=== PATIENT | male | born 1985 | race Caucasian/White ===

== ENCOUNTER 2020-01-04 06:15 | Outpatient (CLI) | payer OTHER, SELFPAY ==
[2020-01-04 18:35] LABS: SARS-CoV-2 RNA PCR Negative
== END 2020-01-04 06:16 | disposition home or self-care (01) ==
LOC: ANHCOVIDDT 06:16
PROVIDERS: PCP Internal Medicine; Visit Provider Internal Medicine Gastroenterology
DX: Z01.818 Encounter for other preprocedural examination (principal); Z11.59 Encounter for screening for other viral diseases
CPT/HCPCS: 87635; C9803; U0003

== ENCOUNTER 2020-02-16 08:20 | Emergency (ER) | payer OTHER, SELFPAY ==
--- NOTE | 2020-02-16 08:31 | ED.NAVMDI ---
HPI - Nausea/Vomiting/Diarrhea General Chief complaint: Nausea/Vomiting/Diarrhea Stated complaint: nausea Time Seen by Provider: 02/16/20 08:31 History of Present Illness HPI Narrative: Long history of GERD. Frequent epigastric burning pain especially in the morning. On omeprazole 20 mg. Had EGD scheduled, but was not able to get it due to insurance issue. Worsening of symptoms for the past 3 days. No has daily morning n[place]a and frothy vomiting. Related Data Allergies Allergy/AdvReac Type Severity Reaction Status Date / Time No Known Allergies Allergy Unverified 01/03/20 15:02 Review of Systems Review of Systems: All systems reviewed & are unremarkable except as noted in HPI and below Constitutional: Constitutional: Denies fever(s) ENT: Denies sore throat Cardiovascular: Cardiovascular: Denies chest pain Respiratory: Respiratory: Denies dyspnea Gastrointestinal: Gastrointestinal: Reports abdominal pain, Denies constipation, Reports heartburn, Denies diarrhea, Reports nausea and Reports vomiting Neurologic: Denies numbness and Denies weakness PMFSH Past Medical History Medical History Epigastric pain Hypertension Family History Family History Mother Family history of thyroid disease Father Family history of elevated blood lipids Other Primary stomach malignancy Social History Social History Smoking status: Former smoker Smoking end date: 08/25/12 Gender identity (if verbalized by the patient): Male Exam Const: General: healthy appearing, no acute distress and alert Orientation/consciousness: patient oriented x3 HENMT: Head: normal to inspection Neck: Neck: normal visual inspection and no lymphadenopathy Chest: Chest palpation & inspection: no tenderness Resp: Effort & Inspection: normal respiratory effort Auscultation: clear to auscultation bilaterally, no rales, no rhonchi and no wheezes Cardio: Jugular venous distension: no JVD Rate: regular rate Rhythm: regular rhythm Heart sounds: no murmurs GI: Inspection: non-distended GI Palp: Yes Soft to palpation and Yes Tenderness to palpation present (GI) (epigastrium ) Skin: General skin exam: normal color Neuro: General: patient oriented x3 and moves all extremities Speech: normal speech Extrem: General: no edema Psych: Appearance: well kempt Affect: normal affect Course Vital Signs Vital signs: Vital Signs Pulse Rate 59 L 02/16/20 09:06 Blood Pressure 129/72 02/16/20 09:06 Pulse Rate 85 02/16/20 09:07 Blood Pressure 129/87 02/16/20 09:07 MDM - Nausea/Vomiting/Diarrhea MDM Narrative Medical decision making narrative: Feeling better aafter GI cocktail. Case discussed with with Dr. Pang. He will try to expedite his EGD Medical Records Attestation: I reviewed the patient's medical records. Lab Data Attestation: I reviewed the patient's lab results. Result diagrams: 02/16/20 09:10 02/16/20 09:10 Labs: Lab Results 02/16/20 02/16/20 Range/Units 09:10 09:10 WBC 9.8 (4.5-10.0) K/mm3 RBC 5.21 (4.6-6.20) M/mm3 Hgb 15.5 (14.0-18.0) g/dL Hct 45.1 (42.0-52.0) % MCV 86.6 (80-100) fl MCH 29.8 (26-34) pg MCHC 34.4 (32-36) g/dl RDW 11.9 (11.5-14.5) % Plt Count 382 H (150-375) k/mm3 MPV 9.7 (7.4-10.4) fl Immature Gran % (Auto) 0.7 H (0-0.5) % Neut % (Auto) 80.5 H (45.5-73.1) % Lymph % (Auto) 11.5 L (18.3-44.2) % [place] % (Auto) 4.1 (2.6-8.5) % Eos % (Auto) 2.8 (0-4.4) % Baso % (Auto) 0.4 (0.2-1.2) % Lymph # (Auto) 1.13 (0.9-3.2) K/mm3 [place] # (Auto) 0.4 (0.1-0.6) K/mm3 Eos # (Auto) 0.3 (0-0.3) K/mm3 Baso # (Auto) 0.0 (0.0-0.1) K/mm3 Abs Immat Gran (auto) 0.07 H (0.00-0.031) K/mm3 Absolute Neuts (auto) 7.9 H (1.3-6.7) K
[2020-02-16] MEDS: ONDANSETRON INJ 4 MG/2 ML VIAL IV PUSH (08:59)
[2020-02-16] MEDS: SODIUM CHLORIDE 0.9% IV 1,000 ML 999 ML IV CONT (08:59)
[2020-02-16] MEDS: PANTOPRAZOLE SODIUM IV 40 MG VIAL IV PUSH (08:59)
[2020-02-16 09:06] VITALS: BP 129/72; BP 132/78; PULSE 59; PULSE 67
[2020-02-16 09:07] VITALS: BP 129/87; PULSE 85
[2020-02-16 09:27] LABS: Basophils Percent Auto 0.4 % (0.2-1.2); Eosinophils Absolute Auto 0.3 K/mm3 (0-0.3); Eosinophils Percent Auto 2.8 % (0-4.4); Hematocrit 45.1 % (42.0-52.0); Hemoglobin 15.5 g/dL (14.0-18.0); Immature Granulocyte Absolute 0.07 K/mm3 (0.00-0.031); Immature Granulocyte Percent A 0.7 % (0-0.5); Lymphocytes Absolute Auto 1.13 K/mm3 (0.9-3.2); Lymphocytes Percent Auto 11.5 % (18.3-44.2); Mean Corpuscular HGB Conc 34.4 g/dl (32-36); Mean Corpuscular Hemoglobin 29.8 pg (26-34); Mean Corpuscular Volume 86.6 fl (80-100); Mean Platelet Volume 9.7 fl (7.4-10.4); Monocytes Absolute Auto 0.4 K/mm3 (0.1-0.6); Monocytes Percent Auto 4.1 % (2.6-8.5); Neutrophils Absolute Auto 7.9 K/mm3 (1.3-6.7); Neutrophils Percent Auto 80.5 % (45.5-73.1); Platelet Count Result 382 k/mm3 (150-375); Red Blood Count 5.21 M/mm3 (4.6-6.20); Red Cell Distribution Width 11.9 % (11.5-14.5); White Blood Count 9.8 K/mm3 (4.5-10.0)
[2020-02-16 09:40] LABS: Potassium 4.2 mmol/L (3.4-5.0)
[2020-02-16 09:53] LABS: Alanine Aminotransferase 25 U/L (4-50); Alkaline Phosphatase 85 U/L (38-126); Aspartate Amino Transferase 28 U/L (17-59); Bilirubin,Total 0.7 mg/dL (0.2-1.3); Blood Urea Nitrogen 17 mg/dL (9-20); Calcium 9.7 mg/dL (8.4-10.2); Carbon Dioxide 27 mmol/L (22-30); Chloride 104 mmol/L (98-107); Estimated Glomerular Filt Rate > 60; Glucose 118 mg/dL (75-110); Lipase 79 U/L (23-300); Sodium 139 mmol/L (137-145)
== END 2020-02-16 10:47 | disposition home or self-care (01) ==
PROVIDERS: Emergency Provider Emergency Medicine; PCP Internal Medicine
DX: K21.9 Gastro-esophageal reflux disease without esophagitis (principal); I10 Essential (primary) hypertension; Z87.891 Personal history of nicotine dependence
CPT/HCPCS: 36415; 80053; 83690; 85025; 96361; 96374; 96375; 99284; A9270; C9113; J2405; J7030

== ENCOUNTER 2020-02-18 09:42 | Day surgery (SDC) | payer OTHER, SELFPAY ==
[2020-01-03 15:09] VITALS: BMI 38.4
--- NOTE | 2020-02-18 10:51 | WPDANESEPPF ---
Anes - Initial Pre Proc Eval Procedure: Operation Date: 02/18/20 13:30 Proposed Procedures p Esophagogastroduodenoscopy - Kamron Garza MD Date/Time: 02/18/20 10:51 Surgeon: Kamron Garza MD Pre Op Diagnosis: Nausea/ Vomiting/ Dysphagia/GERD Patient Data Age: 34 Gender: M Height: 1.8 m Weight: 125 kg Allergies Allergy/AdvReac Type Severity Reaction Status Date / Time No Known Allergies Allergy Verified 02/18/20 09:06 Home Medications Medication Instructions Recorded Confirmed Type escitalopram oxalate 10 mg tablet 10 mg PO DAILY #90 tablet 10/04/19 02/18/20 Rx levothyroxine 50 mcg tablet 50 mcg PO DAILY #90 tablet 10/04/19 02/18/20 Rx simvastatin 40 mg tablet 40 mg PO DAILY #90 tablet 10/04/19 01/03/20 Rx metoprolol succinate 25 mg capsule 25 mg PO DAILY #90 each 12/07/19 02/18/20 Rx sprinkle, ext. release 24 hr omeprazole 20 mg tablet,delayed 20 mg PO BID #60 tablet 02/18/20 02/18/20 Rx release sucralfate 100 mg/mL oral 1 gm PO Q6H #420 ml 02/18/20 02/18/20 Rx suspension Patient hx anesthesia problems: none Family hx anesthesia problems: none PMFSH Social History Social History Smoking status: Former smoker Smoking end date: 08/25/12 Gender identity (if verbalized by the patient): Male Anes - Eval Final PreProcedure Day of Procedure 02/18/20 10:51 Patient weight: obese Heart: regular rate and rhythm Lungs: clear to auscultation and normal air movement Airway: Mallampati scale class II Neurological: alert and oriented Last oral intake: >/= 8 hours ASA classification: III Emergent: no Anesthetic plan: proceed Anesthesia type and monitoring: general GIVS and standard monitoring Informed Consent: The patient's anesthetic plan and its attendant risks and benefits were discussed with the patient/family/POA. Questions were solicited and answers provided to the satisfaction of the patient/family/POA.
[2020-02-18 11:51] VITALS: BP 130/82; PULSE 80; RESP 18; TEMP 36.9; O2SAT 97
[2020-02-18] MEDS: LACTATED RINGERS 1,000 ML 150 ML IV CONT (12:05)
[2020-02-18 13:41] VITALS: BP 102/64; PULSE 70; RESP 25; O2SAT 94
--- NOTE | 2020-02-18 13:42 | PM.HPGS ---
History of Present Illness History of Present Illness Consent: Risks, benefits, and alternatives have been discussed and questions answered. Patient agrees to proceed with procedure. Chief complaint: Nausea/ Vomiting/ Dysphagia/GERD Narrative: David Woods is a 34 year old male with reflux, nausea and vomiting despite treatment, he came to ER few days ago and still feeling sick, never had EGD Review of Systems Constitutional: Constitutional: Denies headache(s) and Denies weakness Eyes: Eyes: Denies blurry vision ENT: Reports Normal hearing present, Denies headache(s) and Denies neck pain Cardiovascular: Cardiovascular: Denies chest pain and Denies dyspnea Respiratory: Respiratory: Denies dyspnea Gastrointestinal: Gastrointestinal: Reports no additional gastrointestinal complaints Genitourinary: Genitourinary: Denies dysuria Musculoskeletal: Musculoskeletal: Denies neck pain Integumentary/Breasts: Skin/Breast: Denies dry skin Neurologic: Reports Normal hearing present, Denies headache(s) and Denies weakness Psychiatric: Psychiatric: Denies anxiety Endocrine: Endocrine: Denies change in body appearance Hematologic/Lymphatic: Hematologic/Lymphatic: Denies easy bleeding Allergic/Immunologic: Allergic/Immunologic: Denies urticaria [facility] Social History Social History Smoking status: Former smoker Smoking end date: 08/25/12 Gender identity (if verbalized by the patient): Male Meds Home Medications and Allergies Home Medications Medication Instructions Recorded Confirmed Type escitalopram oxalate 10 mg tablet 10 mg PO DAILY #90 tablet 10/04/19 02/18/20 Rx levothyroxine 50 mcg tablet 50 mcg PO DAILY #90 tablet 10/04/19 02/18/20 Rx simvastatin 40 mg tablet 40 mg PO DAILY #90 tablet 10/04/19 01/03/20 Rx metoprolol succinate 25 mg capsule 25 mg PO DAILY #90 each 12/07/19 02/18/20 Rx sprinkle, ext. release 24 hr omeprazole 20 mg tablet,delayed 20 mg PO BID #60 tablet 02/18/20 02/18/20 Rx release sucralfate 100 mg/mL oral 1 gm PO Q6H #420 ml 02/18/20 02/18/20 Rx suspension Allergies Allergy/AdvReac Type Severity Reaction Status Date / Time No Known Allergies Allergy Verified 02/18/20 09:06 Vital Signs Vital Signs - 24 hr 02/18/20 11:51 Temperature 98.4 F Pulse Rate 80 Respiratory Rate 18 Blood Pressure 130/82 Pulse Oximetry 97 Exam Const: General: comfortable and no acute distress HENMT: General nose exam: Normal nares present Eyes: General: appearance normal, both eyes and all related structures Neck: Neck: no JVD Resp: Auscultation: clear to auscultation bilaterally Cardio: Rate: regular rate Rhythm: regular rhythm GI: Inspection: non-distended GI Palp: Yes Soft to palpation Skin: General skin exam: normal color Neuro: General: gait normal Speech: normal speech Extrem: General: normal to inspection Psych: Mental Status: mental status grossly normal Assessment and Plan Assessment and plan (1) GERD (gastroesophageal reflux disease): Qualifiers: Esophagitis presence: esophagitis presence not specified Qualified Code(s): K21.9 - Gastro-esophageal reflux disease without esophagitis Code(s): K21.9 - Gastro-esophageal reflux disease without esophagitis Status: Acute Assessment and Plan: will proceed with egd (2) Epigastric pain: Code(s): R10.13 - Epigastric pain Status: Acute (3) Nausea & vomiting: Code(s): R11.2 - Nausea with vomiting, unspecified Status: Acute
[2020-02-18 13:51] VITALS: BP 105/64; PULSE 68; RESP 19; O2SAT 96
[2020-02-18 14:01] VITALS: BP 113/75; PULSE 62; RESP 19; O2SAT 97
== END 2020-02-18 14:10 | disposition home or self-care (01) ==
PROVIDERS: PCP Internal Medicine; Visit Provider Internal Medicine Gastroenterology
PROC: 0DJ08ZZ Inspection of Upper Intestinal Tract, Via Natural or Artificial Opening Endoscopic (ICD-10-PCS; CPT 43235; principal; 2020-02-18 13:30)
DX: K29.50 Unspecified chronic gastritis without bleeding (principal); K21.0 Gastro-esophageal reflux disease with esophagitis; R13.10 Dysphagia, unspecified; Z87.891 Personal history of nicotine dependence; E66.9 Obesity, unspecified; Z68.36 Body mass index [BMI] 36.0-36.9, adult
CPT/HCPCS: 43239; 88305; J2704; J7120

== ENCOUNTER 2020-02-23 09:18 | Emergency (ER) | payer OTHER, SELFPAY ==
[2020-02-23 09:21] VITALS: BP 129/86; PULSE 83; RESP 18; TEMP 36.4; O2SAT 100
[2020-02-23 09:49] LABS: Basophils Absolute Auto 0.1 K/mm3 (0.0-0.1); Basophils Percent Auto 0.5 % (0.2-1.2); Eosinophils Absolute Auto 0.2 K/mm3 (0-0.3); Eosinophils Percent Auto 1.9 % (0-4.4); Hematocrit 46.1 % (42.0-52.0); Hemoglobin 16.4 g/dL (14.0-18.0); Immature Granulocyte Absolute 0.05 K/mm3 (0.00-0.031); Immature Granulocyte Percent A 0.5 % (0-0.5); Lymphocytes Percent Auto 12.9 % (18.3-44.2); Mean Corpuscular HGB Conc 35.6 g/dl (32-36); Mean Corpuscular Hemoglobin 30.4 pg (26-34); Mean Corpuscular Volume 85.4 fl (80-100); Mean Platelet Volume 9.6 fl (7.4-10.4); Monocytes Absolute Auto 0.6 K/mm3 (0.1-0.6); Monocytes Percent Auto 5.5 % (2.6-8.5); Neutrophils Absolute Auto 8.6 K/mm3 (1.3-6.7); Neutrophils Percent Auto 78.7 % (45.5-73.1); Platelet Count Result 409 k/mm3 (150-375); Red Cell Distribution Width 12.4 % (11.5-14.5); White Blood Count 10.9 K/mm3 (4.5-10.0)
[2020-02-23] MEDS: SODIUM CHLORIDE 0.9% IV 1,000 ML 999 ML IV CONT (09:55)
[2020-02-23] MEDS: PROMETHAZINE HCL 25 MG/ML AMPUL 12.5 MG IV PUSH (09:57)
[2020-02-23 10:03] LABS: Alanine Aminotransferase 23 U/L (4-50); Albumin Level 5.2 g/dL (3.5-5.1); Alkaline Phosphatase 95 U/L (38-126); Aspartate Amino Transferase 28 U/L (17-59); Bilirubin,Total 0.7 mg/dL (0.2-1.3); Blood Urea Nitrogen 11 mg/dL (9-20); Calcium 10.2 mg/dL (8.4-10.2); Carbon Dioxide 22 mmol/L (22-30); Chloride 104 mmol/L (98-107); Estimated CRCL calculation 110 ml/min; Estimated Glomerular Filt Rate > 60; Glucose 114 mg/dL (75-110); Lipase 91 U/L (23-300); Potassium 3.7 mmol/L (3.4-5.0); Sodium 139 mmol/L (137-145)
--- NOTE | 2020-02-23 11:25 | ED.ABDPAIN ---
HPI - Abdominal Pain General Chief Complaint: Abdominal Pain Stated Complaint: ABD PAIN Time Seen by Provider: 02/23/20 09:42 History of Present Illness HPI narrative: Patient is a 34-year-old male who presents ER with epigastric pain and nausea and vomiting. Sudden onset this morning. He had just had a endoscopy on 17 February that showed gastritis. He has been hospitalized for persistent nausea and vomiting in the past. Patient still getting anxious and is having tingling of his mouth and hands. Reports his hand is starting to spasm. No chest pain or shortness of breath. No change in his diet that may have exacerbated this. Reports compliant with his home anti-acid medication. Related Data Home Medications Medication Instructions Recorded Confirmed prochlorperazine maleate 02/23/20 Allergies Allergy/AdvReac Type Severity Reaction Status Date / Time No Known Allergies Allergy Verified 02/23/20 09:38 Review of Systems Review of Systems: All systems reviewed & are unremarkable except as noted in HPI and below Constitutional: Constitutional: Denies chills and Denies fever(s) ENT: Denies nasal congestion and Denies sore throat Cardiovascular: Cardiovascular: Denies chest pain and Denies radiating jaw, neck or arm pain Respiratory: Respiratory: Denies cough, Denies dyspnea and Denies wheezing Gastrointestinal: Gastrointestinal: Reports abdominal pain, Reports heartburn, Reports nausea and Reports vomiting Neurologic: Denies focal weakness and Reports numbness Psychiatric: Psychiatric: Reports anxiety and Denies depression PMFSH Past Medical History Medical History (Updated 02/23/20 @ 12:43 by Dave Enamorado MD) Anxiety state, unspecified Dyslipidemia, goal LDL below 130 Epigastric pain GERD (gastroesophageal reflux disease) Hypertension Hypothyroidism (acquired) Nausea & vomiting Surgical History Surgical History (Updated 02/23/20 @ 11:38 by Dave Enamorado MD) History of endoscopy Social History Social History Smoking status: Former smoker Smoking end date: 08/25/12 Gender identity (if verbalized by the patient): Male Exam Narrative: Exam Narrative: GENERAL: Uncomfortable appearing, diaphoretic, well-nourished, and in moderate distress. HEAD: Normocephalic, atraumatic. ENT: Mucous membranes moist. CHEST: Clear to auscultation. No respiratory distress. HEART: Regular rate and rhythm. No murmur heard. Normal peripheral pulses. ABDOMEN: Soft, nontender, nondistended, normal active bowel sounds. EXTREMITIES: Normal range of motion. No edema. SKIN: Warm, dry, no rash. NEURO: No focal deficits. Alert and oriented x3. PSYCH: Normal mood and affect. Course Course Emergency Course: Symptoms resolved with GI cocktail and Ativan. Discharge home. Vital Signs Vital signs: Vital Signs Temperature 97.5 F L 02/23/20 09:21 Pulse Rate 83 02/23/20 09:21 Respiratory Rate 18 02/23/20 09:21 Blood Pressure 129/86 02/23/20 09:21 Pulse Oximetry 100 02/23/20 09:21 Temperature 97.5 F L 02/23/20 09:21 Pulse Rate 78 02/23/20 11:46 Respiratory Rate 18 02/23/20 11:46 Blood Pressure 125/75 02/23/20 11:46 Pulse Oximetry 99 02/23/20 11:46 MDM - Abdominal Pain Lab Data Result diagrams: 02/23/20 09:42 02/23/20 09:42 Labs: Lab Results 02/23/20 02/23/20 Range/Units 09:42 09:42 WBC 10.9 H (4.5-10.0) K/mm3 RBC 5.40 (4.6-6.20) M/mm3 Hgb 16.4 (14.0-18.0) g/dL Hct 46.1 (42.0-52.0) % MCV 85.4 (80-100) fl MCH 30.4 (26-34) pg MCHC 35.6 (32-36) g/dl RDW 12.4 (11.5-14.5) % Plt Count 409 H (150-375) k/mm3 MPV 9.6 (7.4-10.4) fl Immature Gran % (Auto) 0.5 (0-0.5) % Neut % (Auto) 78.7 H (45.5-73.1) % Lymph % (Auto) 12.9 L (18.3-44.2) % [place] % (Auto) 5.5 (2.6-8.5) % Eos % (Auto) 1.9 (0-4.4) % Baso % (Auto) 0.5 (0.
[2020-02-23 11:46] VITALS: BP 125/75; PULSE 78; RESP 18; O2SAT 99
[2020-02-23 13:15] VITALS: BP 120/70; PULSE 66; RESP 16; O2SAT 100
== END 2020-02-23 13:15 | disposition home or self-care (01) ==
PROVIDERS: Emergency Provider Emergency Medicine; PCP Internal Medicine
DX: K29.70 Gastritis, unspecified, without bleeding (principal); K21.9 Gastro-esophageal reflux disease without esophagitis; E78.5 Hyperlipidemia, unspecified; I10 Essential (primary) hypertension; E03.9 Hypothyroidism, unspecified; Z87.891 Personal history of nicotine dependence
CPT/HCPCS: 36415; 80053; 83690; 85025; 96361; 96374; 96375; 99284; J2060; J2550; J7030

== ENCOUNTER 2020-03-29 11:48 | Emergency (ER) | payer OTHER, SELFPAY ==
[2020-03-29 11:55] VITALS: BP 143/93; PULSE 84; RESP 18; TEMP 36.4; O2SAT 97
--- NOTE | 2020-03-29 12:24 | ED.GENADULT ---
HPI - General Adult General Chief complaint: Unspecified <Abrahan Bear PA-C - Last Filed: 03/29/20 13:43> Stated complaint: heart burn <Abrahan Bear PA-C - Last Filed: 03/29/20 13:43> Time Seen by Provider: 03/29/20 12:01 <Abrahan Bear PA-C - Last Filed: 03/29/20 13:43> Source: patient <DOC Dickinson Last Filed: 03/29/20 13:43> Mode of arrival: ambulatory <Abrahan Bear PA-C - Last Filed: 03/29/20 13:43> Limitations: no limitations <Abrahan Bear PA-C - Last Filed: 03/29/20 13:43> History of Present Illness HPI narrative: Patient is a 34-year-old male who presents to emergency department for evaluation of abdominal pain with reflux symptoms that have been present for the last 2 months 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 Patient does note history of anxiety which has been bad as well and attributes his symptoms primarily distress <Abrahan eBar PA-C - Last Filed: 03/29/20 13:43> Related Data Home medications: Home Medications Medication Instructions Recorded Confirmed prochlorperazine maleate 10 mg PO 02/23/20 <Abrahan Bear PA-C - Last Filed: 03/29/20 13:43> Allergies/adverse reactions: Allergies Allergy/AdvReac Type Severity Reaction Status Date / Time No Known Allergies Allergy Verified 03/29/20 11:59 <Abrahan Bear PA-C - Last Filed: 03/29/20 13:43> Review of Systems Review of Systems: All systems reviewed & are unremarkable except as noted in HPI and below <Abrahan Bear PA-C - Last Filed: 03/29/20 13:43> PMFSH Past Medical History Medical History: Medical History Anxiety state, unspecified Diarrhea Dyslipidemia, goal LDL below 130 Epigastric pain GERD (gastroesophageal reflux disease) Hypertension Hypothyroidism (acquired) Nausea Nausea & vomiting <Abrahan Bear PA-C - Last Filed: 03/29/20 13:43> Surgical History Surgical History: Surgical History History of endoscopy <Abrahan Bear PA-C - Last Filed: 03/29/20 13:43> Social History Social History: Social History Smoking status: Former smoker Smoking end date: 08/25/12 Gender identity (if verbalized by the patient): Male <Abrahan Bear PA-C - Last Filed: 03/29/20 13:43> Exam Narrative: Exam Narrative: GENERAL: Well-appearing, well-nourished, and in no acute distress. HEAD: Normocephalic, atraumatic. EYES: PERRLA and EOMI. ENT: Nares clear, no rhinorrhea or epistaxis. Mucous membranes moist. CHEST: Clear to auscultation. No respiratory distress. No wheezes rales or rhonchi HEART: Regular rate and rhythm. No murmur heard. Normal peripheral pulses. ABDOMEN: Soft, epigastric tenderness without rebound or guarding, nondistended EXTREMITIES: Normal range of motion. No edema. SKIN: Warm, dry, no rash. NEURO: No focal deficits. Alert and oriented x3. PSYCH: Normal mood and affect. <Abrahan Bear PA-C - Last Filed: 03/29/20 13:43> Course Course Emergency Course: Patient improved with medications feeling much better felt appropriate discharge home agreeing to follow-up with his specialist patient is afebrile nontoxic-appearing. <Abrahan Bear PA-C - Last Filed: 03/29/20 13:43> Vital Signs Vital signs: Vital Signs Temperature 97.5 F L 03/29/20 11:55 Pulse Rate 84 03/29/20 11:55 Respiratory Rate 18 03/29/20 11:55 Blood Pressure 143/93 H 03/29/20 11:55 Pulse Oximetry 97 0
[2020-03-29 12:26] LABS: Basophils Percent Auto 0.4 % (0.2-1.2); Eosinophils Absolute Auto 0.2 K/mm3 (0-0.3); Eosinophils Percent Auto 2.3 % (0-4.4); Hematocrit 42.3 % (42.0-52.0); Hemoglobin 14.8 g/dL (14.0-18.0); Immature Granulocyte Absolute 0.04 K/mm3 (0.00-0.031); Immature Granulocyte Percent A 0.5 % (0-0.5); Lymphocytes Absolute Auto 0.95 K/mm3 (0.9-3.2); Lymphocytes Percent Auto 11.6 % (18.3-44.2); Mean Corpuscular Hemoglobin 29.9 pg (26-34); Mean Corpuscular Volume 85.5 fl (80-100); Mean Platelet Volume 9.8 fl (7.4-10.4); Monocytes Absolute Auto 0.3 K/mm3 (0.1-0.6); Monocytes Percent Auto 3.2 % (2.6-8.5); Neutrophils Absolute Auto 6.7 K/mm3 (1.3-6.7); Platelet Count Result 405 k/mm3 (150-375); Red Blood Count 4.95 M/mm3 (4.6-6.20); Red Cell Distribution Width 12.8 % (11.5-14.5); White Blood Count 8.2 K/mm3 (4.5-10.0)
[2020-03-29] MEDS: LIDOCAINE HCL 2% VISC SOLN 15 ML UDC 20 ML PO (12:34)
[2020-03-29] MEDS: FAMOTIDINE 20 MG/2 ML VIAL IV PUSH (12:34)
[2020-03-29] MEDS: MAG HYDROX/AL HYDROX/SIMETH 30 ML UDC PO (12:34)
[2020-03-29] MEDS: diphenhydrAMINE HCl INJ 50 MG/ML VIAL 25 MG IV PUSH (12:34)
[2020-03-29] MEDS: METOCLOPRAMIDE HCL INJ 10 MG/2 ML VIAL IV PUSH (12:34)
[2020-03-29] MEDS: SODIUM CHLORIDE 0.9% IV 1,000 ML 999 ML IV CONT (12:34)
[2020-03-29 12:42] LABS: Alanine Aminotransferase 20 U/L (4-50); Albumin Level 4.7 g/dL (3.5-5.1); Alkaline Phosphatase 82 U/L (38-126); Anion Gap 11.9 mmol/L (7-16); Aspartate Amino Transferase 23 U/L (17-59); Bilirubin,Total 0.5 mg/dL (0.2-1.3); Blood Urea Nitrogen 9 mg/dL (9-20); Carbon Dioxide 24 mmol/L (22-30); Chloride 107 mmol/L (98-107); Estimated CRCL calculation 120 ml/min; Estimated Glomerular Filt Rate > 60; Glucose 123 mg/dL (75-110); Lipase 57 U/L (23-300); Potassium 3.9 mmol/L (3.4-5.0); Sodium 139 mmol/L (137-145)
[2020-03-29 13:47] LABS: Add Urine Microscopic? YES; Appearance Urine Clear (Clear); Bacteria Urine Trace /hpf; Bilirubin Urine Negative (Negative); Blood Urine Negative (Negative); Color Urine Yellow (Yellow); Glucose Urine UA Negative (Negative); Ketones Urine Trace mg/dL (Negative); Leukocyte Esterase Ur Negative LEU/UL (Negative); Mucus Urine Rare /lpf; Nitrate Urine Negative (Negative); Protein Urine Negative (Negative); RBC Urine 0-2 /hpf (0-2); Specific Grav Ur 1.018 (1.001-1.035); Urobilinogen Urine Negative mg/dL (<2.0); WBC Urine 0-3 /hpf
[2020-03-29 14:10] VITALS: BP 152/83; PULSE 62; RESP 18; O2SAT 97
--- NOTE | 2020-04-18 14:54 | PC.NURSE ---
LATE ENTRY This note is being entered to document information to the patient's record. The following information was omitted on [03/29/20], by [Blanca Ford]. NS stop time is 1330, 1000ml infused.
--- NOTE | 2020-04-27 09:53 | PC.NURSE ---
LATE ENTRY This note is being entered to document information to the patient's record. The following information was omitted on [03/29/20], by [Blanca Ford RN]. NS stop time [id number]
== END 2020-03-29 14:11 | disposition home or self-care (01) ==
PROVIDERS: Emergency Medicine Emergency Medical Services; Emergency Provider General Practice; PCP Internal Medicine
DX: R10.9 Unspecified abdominal pain (principal); F41.9 Anxiety disorder, unspecified; E78.5 Hyperlipidemia, unspecified; K21.9 Gastro-esophageal reflux disease without esophagitis; I10 Essential (primary) hypertension; E03.9 Hypothyroidism, unspecified; Z87.891 Personal history of nicotine dependence
CPT/HCPCS: 36415; 80053; 81001; 83690; 85025; 96361; 96374; 96375; 99284; A9270; J1200; J2765; J7030

== ENCOUNTER 2020-04-05 00:58 | Outpatient (CLI) | payer OTHER, SELFPAY ==
[2020-04-05 18:42] LABS: SARS-CoV-2 RNA PCR Negative
== END 2020-04-05 00:59 | disposition home or self-care (01) ==
LOC: ANHCOVIDDT 00:58
PROVIDERS: PCP Internal Medicine; Visit Provider Internal Medicine Gastroenterology
DX: Z01.812 Encounter for preprocedural laboratory examination (principal); Z20.828 Contact with and (suspected) exposure to other viral communicable diseases
CPT/HCPCS: 87635; C9803; U0003

== ENCOUNTER 2020-04-07 02:04 | Day surgery (SDC) | payer OTHER, SELFPAY ==
[2020-03-31 11:14] VITALS: BMI 36.3
[2020-04-07] MEDS: LACTATED RINGERS 1,000 ML 150 ML IV CONT (09:56)
[2020-04-07 09:58] VITALS: BP 111/69; PULSE 72; RESP 18; TEMP 36.6; O2SAT 97
--- NOTE | 2020-04-07 10:13 | WPDANESEPPF ---
Anes - Initial Pre Proc Eval Procedure: Operation Date: 04/07/20 10:00 Proposed Procedures p Colonoscopy - Kamron Garza MD Date/Time: 04/07/20 10:13 Surgeon: Kamron Garza MD Pre Op Diagnosis: Diarrhea Patient Data Age: 34 Gender: M Height: 5 ft 11 in Weight: 114.6 kg Last Vital Signs Temp 97.8 F 04/07/20 09:58 Pulse 72 04/07/20 09:58 Resp 18 04/07/20 09:58 BP 111/69 04/07/20 09:58 Pulse Ox 97 04/07/20 09:58 Allergies Allergy/AdvReac Type Severity Reaction Status Date / Time No Known Allergies Allergy Verified 04/07/20 09:44 Home Medications Medication Instructions Recorded Confirmed Type escitalopram oxalate 10 mg tablet 10 mg PO DAILY #90 tablet 10/04/19 04/07/20 Rx levothyroxine 50 mcg tablet 50 mcg PO DAILY #90 tablet 10/04/19 04/07/20 Rx simvastatin 40 mg tablet 40 mg PO DAILY #90 tablet 10/04/19 04/07/20 Rx omeprazole 20 mg tablet,delayed 20 mg PO BID #60 tablet 02/18/20 04/07/20 Rx release lidocaine HCl [Lidocaine Viscous] 1 applic PO TID PRN #100 ml 02/23/20 04/07/20 Rx prochlorperazine maleate 10 mg PO DAILY 02/23/20 04/07/20 History metoprolol succinate 25 mg capsule 25 mg PO DAILY #90 cap 03/06/20 04/07/20 Rx sprinkle, ext. release 24 hr clonazepam 0.5 mg tablet 0.75 mg PO DAILY #225 tablet 03/28/20 04/07/20 Rx Patient hx anesthesia problems: none Family hx anesthesia problems: none PMFSH Social History Social History Smoking status: Former smoker Smoking end date: 08/25/12 Gender identity (if verbalized by the patient): Male Anes - Eval Final PreProcedure Day of Procedure 04/07/20 10:13 Patient weight: obese Heart: regular rate and rhythm Lungs: clear to auscultation Airway: Mallampati scale class II Neurological: alert and oriented Last oral intake: >/= 8 hours ASA classification: III Emergent: no Anesthetic plan: proceed Anesthesia type and monitoring: general GIVS and standard monitoring Informed Consent: The patient's anesthetic plan and its attendant risks and benefits were discussed with the patient/family/POA. Questions were solicited and answers provided to the satisfaction of the patient/family/POA.
--- NOTE | 2020-04-07 10:20 | WPDHPUPDATE1 ---
History and Physical Update Update Date/Time: 04/07/20 10:20 History and Physical has been reviewed, including an updated exam of the patient. There are NO changes in the patient's condition. Risks, benefits, and alternatives have been discussed and questions answered. Patient agrees to proceed with procedure.
[2020-04-07 10:45] VITALS: BP 92/61; PULSE 60; RESP 20; O2SAT 96
[2020-04-07 10:55] VITALS: BP 100/63; PULSE 73; RESP 28; O2SAT 96
[2020-04-07 11:05] VITALS: BP 109/68; PULSE 52; RESP 14; O2SAT 96
== END 2020-04-07 11:14 | disposition home or self-care (01) ==
PROVIDERS: PCP Internal Medicine; Visit Provider Internal Medicine Gastroenterology
PROC: 0DJD8ZZ Inspection of Lower Intestinal Tract, Via Natural or Artificial Opening Endoscopic (ICD-10-PCS; CPT 45378; principal; 2020-04-07 10:00)
DX: R19.7 Diarrhea, unspecified (principal); E03.9 Hypothyroidism, unspecified; K21.9 Gastro-esophageal reflux disease without esophagitis; E78.5 Hyperlipidemia, unspecified; F41.9 Anxiety disorder, unspecified; Z87.891 Personal history of nicotine dependence; E66.9 Obesity, unspecified; Z68.35 Body mass index [BMI] 35.0-35.9, adult
CPT/HCPCS: 45380; 88305; J2704; J7120

== ENCOUNTER 2020-04-14 07:22 | Emergency (ER) | payer OTHER, SELFPAY ==
[2020-04-14 07:26] VITALS: BP 166/109; PULSE 75; RESP 18; TEMP 36.4; O2SAT 99
--- NOTE | 2020-04-14 07:30 | ED.ABDPAIN ---
HPI - Abdominal Pain General Chief Complaint: Abdominal Pain Stated Complaint: heart burn Time Seen by Provider: 04/14/20 07:30 History of Present Illness HPI narrative: He has had constatn burning epigastric pain for a long time now. I saw him previously and refered him to Dr. Torre about 3 months ago. Since that time he has upper and lower endoscopy. The only positive finding was chronic gastritis at the antrum. He is on omeprazole 20 mg BID. He has had no relief. He came in today because he has been vomiting and feels dehydrated. He has not had any significant change in her pain. Related Data Home Medications Medication Instructions Recorded Confirmed prochlorperazine maleate 10 mg PO DAILY 02/23/20 04/07/20 Allergies Allergy/AdvReac Type Severity Reaction Status Date / Time No Known Allergies Allergy Verified 04/14/20 07:29 Review of Systems Review of Systems: All systems reviewed & are unremarkable except as noted in HPI and below Constitutional: Constitutional: Denies fever(s) Cardiovascular: Cardiovascular: Denies chest pain Respiratory: Respiratory: Denies dyspnea Gastrointestinal: Gastrointestinal: Reports abdominal pain, Reports diarrhea, Reports nausea and Reports vomiting Psychiatric: Psychiatric: Reports anxiety PMFSH Past Medical History Medical History Anxiety state, unspecified Diarrhea Dyslipidemia, goal LDL below 130 Epigastric pain GERD (gastroesophageal reflux disease) Hypertension Hypothyroidism (acquired) Nausea Nausea & vomiting Surgical History Surgical History History of endoscopy Social History Social History Smoking status: Former smoker Smoking end date: 08/25/12 Gender identity (if verbalized by the patient): Male Exam Const: General: no acute distress and alert Orientation/consciousness: patient oriented x3 HENMT: Head: normal to inspection Resp: Effort & Inspection: normal respiratory effort Auscultation: clear to auscultation bilaterally, no rales, no rhonchi and no wheezes Cardio: Jugular venous distension: no JVD Rate: regular rate Rhythm: regular rhythm Heart sounds: no murmurs GI: Inspection: non-distended GI Palp: Yes Soft to palpation and Yes Tenderness to palpation present (GI) (epigastric) Skin: General skin exam: normal color Neuro: General: patient oriented x3 and moves all extremities Speech: normal speech Extrem: General: no edema Psych: Appearance: well kempt Affect: normal affect Course Vital Signs Vital signs: Vital Signs Temperature 36.4 C L 04/14/20 07:26 Pulse Rate 75 04/14/20 07:26 Respiratory Rate 18 04/14/20 07:26 Blood Pressure 166/109 H 04/14/20 07:26 Pulse Oximetry 99 04/14/20 07:26 Temperature 36.4 C L 04/14/20 07:26 Pulse Rate 78 04/14/20 09:15 Respiratory Rate 16 04/14/20 09:15 Blood Pressure 118/75 04/14/20 09:15 Pulse Oximetry 100 04/14/20 09:15 MDM - Abdominal Pain MDM Narrative Medical decision making narrative: Feeling beter after treatment. Wishes to be discharged. Will need to follow-up with GI. Medical Records Attestation: I reviewed the patient's medical records. Lab Data Attestation: I reviewed the patient's lab results. Result diagrams: 04/14/20 07:33 04/14/20 07:33 Labs: Lab Results 04/14/20 04/14/20 04/14/20 Range/Units 07:33 07:33 07:33 WBC 8.2 (4.5-10.0) K/mm3 RBC 5.18 (4.6-6.20) M/mm3 Hgb 15.5 (14.0-18.0) g/dL Hct 45.1 (42.0-52.0) % MCV 87.1 (80-100) fl MCH 29.9 (26-34) pg MCHC 34.4 (32-36) g/dl RDW 12.9 (11.5-14.5) % Plt Count 399 H (150-375) k/mm3 MPV 9.9 (7.4-10.4) fl Immature Gran % (Auto) 0.5 (0-0.5) % Neut % (Auto) 52.6 (45.5-73.1) % Lymph % (Auto) 32.9 (18.3-44.2
[2020-04-14 07:34] VITALS: BP 147/101; PULSE 89; RESP 16; O2SAT 100
[2020-04-14 07:44] LABS: Basophils Absolute Auto 0.1 K/mm3 (0.0-0.1); Basophils Percent Auto 0.9 % (0.2-1.2); Eosinophils Absolute Auto 0.4 K/mm3 (0-0.3); Eosinophils Percent Auto 4.8 % (0-4.4); Hematocrit 45.1 % (42.0-52.0); Hemoglobin 15.5 g/dL (14.0-18.0); Immature Granulocyte Absolute 0.04 K/mm3 (0.00-0.031); Immature Granulocyte Percent A 0.5 % (0-0.5); Lymphocytes Absolute Auto 2.69 K/mm3 (0.9-3.2); Lymphocytes Percent Auto 32.9 % (18.3-44.2); Mean Corpuscular HGB Conc 34.4 g/dl (32-36); Mean Corpuscular Hemoglobin 29.9 pg (26-34); Mean Corpuscular Volume 87.1 fl (80-100); Mean Platelet Volume 9.9 fl (7.4-10.4); Monocytes Absolute Auto 0.7 K/mm3 (0.1-0.6); Monocytes Percent Auto 8.3 % (2.6-8.5); Neutrophils Absolute Auto 4.3 K/mm3 (1.3-6.7); Neutrophils Percent Auto 52.6 % (45.5-73.1); Platelet Count Result 399 k/mm3 (150-375); Red Blood Count 5.18 M/mm3 (4.6-6.20); Red Cell Distribution Width 12.9 % (11.5-14.5); White Blood Count 8.2 K/mm3 (4.5-10.0)
[2020-04-14 07:45] LABS: Add Urine Microscopic? NO; Appearance Urine Clear (Clear); Bilirubin Urine Negative (Negative); Blood Urine Negative (Negative); Color Urine Straw (Yellow); Glucose Urine UA Negative (Negative); Ketones Urine Negative (Negative); Leukocyte Esterase Ur Negative LEU/UL (Negative); Nitrate Urine Negative (Negative); Protein Urine Negative (Negative); Specific Grav Ur 1.011 (1.001-1.035); Urobilinogen Urine Negative mg/dL (<2.0)
[2020-04-14 07:54] LABS: Alanine Aminotransferase 23 U/L (4-50); Albumin Level 4.9 g/dL (3.5-5.1); Alkaline Phosphatase 81 U/L (38-126); Anion Gap 10 mmol/L (8-16); Aspartate Amino Transferase 28 U/L (17-59); Bilirubin,Total 0.4 mg/dL (0.2-1.3); Blood Urea Nitrogen 12 mg/dL (9-20); Calcium 10.3 mg/dL (8.4-10.2); Carbon Dioxide 25 mmol/L (22-30); Chloride 105 mmol/L (98-107); Estimated CRCL calculation 109 ml/min; Estimated Glomerular Filt Rate > 60; Glucose 92 mg/dL (75-110); Lipase 97 U/L (23-300); Sodium 140 mmol/L (137-145)
[2020-04-14] MEDS: SODIUM CHLORIDE 0.9% IV 1,000 ML 999 ML IV CONT (07:57)
[2020-04-14] MEDS: ONDANSETRON INJ 4 MG/2 ML VIAL IV PUSH (07:57)
[2020-04-14] MEDS: PANTOPRAZOLE SODIUM IV 40 MG VIAL IV PUSH (07:58)
[2020-04-14] MEDS: HALOPERIDOL LACTATE 5 MG/ML VIAL IV PUSH (08:17)
--- NOTE | 2020-04-14 08:22 | PC.NURSE ---
PT PLACED ON INTERN AT THIS TIME DUE IVP HALDOL.
[2020-04-14 08:27] VITALS: PULSE 67; RESP 16; O2SAT 98
[2020-04-14 08:49] VITALS: BP 114/72; PULSE 137; RESP 19; O2SAT 96
--- NOTE | 2020-04-14 08:50 | PC.NURSE ---
PT STATES HE IS FEELING MUCH BETTER AFTER THE GI COCKTAIL.
[2020-04-14 09:15] VITALS: BP 118/75; PULSE 78; RESP 16; O2SAT 100
== END 2020-04-14 09:16 | disposition home or self-care (01) ==
PROVIDERS: Emergency Provider Emergency Medicine; PCP Internal Medicine
DX: K29.50 Unspecified chronic gastritis without bleeding (principal); E78.5 Hyperlipidemia, unspecified; K21.9 Gastro-esophageal reflux disease without esophagitis; I10 Essential (primary) hypertension; E03.9 Hypothyroidism, unspecified; F41.9 Anxiety disorder, unspecified; Z87.891 Personal history of nicotine dependence
CPT/HCPCS: 36415; 80053; 81003; 83690; 85025; 96374; 96375; 99284; A9270; C9113; J1630; J2405; J7030

== ENCOUNTER 2020-04-26 07:44 | Outpatient (CLI) | payer OTHER, SELFPAY ==
--- NOTE | ~2020-04-26 | NM_ITS ---
EXAM: NM gastric emptying study DATE: 04/26/2020 13:55 INDICATION: Nausea with vomiting, unspecified. TECHNIQUE: A gastric emptying study was performed using the methodology of Perry GLEZ, et al. J Nucl Med 2007; 48:568-572. The patient was given a meal consisting of 2 scrambled eggs labeled with 1 mCi Tc-99m sulfur colloid, 2 slices of toast, two packages of jam, and approximately 120 mL of water. Si multaneous anterior and posterior 1-min images of the abdomen were obtained with the patient supine a t multiple time points over a total period of 4 hours. The geometric mean of anterior and posterior v iews was determined, and the percentage retention was calculated for each time point. COMPARISON: None. FINDINGS: Gastric retention of the radiotracer-labeled meal was 61%, 43%, and 32% at the 1-hour, 2-h our, and 4-hour time points, respectively. With this technique, apparent rapid gastric emptying is stout ggested by <30% gastric retention at 1 hour. Delayed gastric emptying is defined by gastric retention of >90% at 1 hour, >60% retention at 2 hours, or >10% retention at 4 hours. IMPRESSION: 1. Delayed gastric emptying. Reviewed, dictated and finalized at location A.
--- NOTE | ~2020-04-26 | US_ITS ---
EXAMINATION: US abdomen complete DATE: 04/26/2020 09:00 INDICATION: Nausea and vomiting, unspecified TECHNIQUE: Multiple grayscale and Doppler ultrasound images of the abdomen were obtained. COMPARISON: None available FINDINGS: The head, body, and tail of the pancreas are normal. The liver is normal with normal echoge nicity and echotexture. No surface nodularity. Normal hepatopetal flow in the main portal vein. The g allbladder is normal with no abnormal wall thickening, pericholecystic fluid or stones. The normal co mmon bile duct measures 4 mm. There was no sonographic Goins sign. The visualized portions of the ao rta and inferior vena cava are normal. The right kidney measures 11.2 x 5.4 x 4.2 cm. The left kidney measures 12.1 x 5.3 x 5.0 cm. The kidn eys demonstrate normal parenchymal echogenicity. There is no hydronephrosis. The spleen is normal in appearance and measures 11.1 cm. IMPRESSION: 1. No sonographic correlate for the patient's symptoms. Reviewed, dictated and finalized at location A.
== END 2020-04-26 07:45 | disposition home or self-care (01) ==
PROVIDERS: PCP Internal Medicine; Visit Provider Internal Medicine Gastroenterology
DX: R11.2 Nausea with vomiting, unspecified (principal); K30 Functional dyspepsia
CPT/HCPCS: 76700; 78264; A9541

== ENCOUNTER 2020-11-01 15:15 | Outpatient (CLI) | payer OTHER, SELFPAY | END 2020-11-01 15:16 | disposition home or self-care (01) | LOC: ANHCOVIDVC 15:15 | PROVIDERS: PCP Internal Medicine | DX: Z23 Encounter for immunization (principal) | CPT/HCPCS: 0001A; 91300 ==

== ENCOUNTER 2020-11-22 15:15 | Outpatient (CLI) | payer OTHER, SELFPAY | END 2020-11-22 15:16 | disposition home or self-care (01) | LOC: ANHCOVIDVC 15:15 | PROVIDERS: PCP Internal Medicine | DX: Z23 Encounter for immunization (principal) | CPT/HCPCS: 0002A; 91300 ==

== ENCOUNTER 2022-07-02 09:32 | Outpatient (CLI) | payer OTHER, SELFPAY ==
[2022-07-02 18:39] LABS: Alanine Aminotransferase 36 U/L (6-50); Albumin Level 4.9 g/dL (3.5-5.1); Alkaline Phosphatase 99 U/L (38-126); Anion Gap 12 mmol/L (8-16); Aspartate Amino Transferase 32 U/L (17-59); Bilirubin,Total 0.7 mg/dL (0.2-1.3); Blood Urea Nitrogen 11 mg/dL (9-20); Calcium 9.5 mg/dL (8.4-10.2); Carbon Dioxide 25 mmol/L (22-30); Chloride 105 mmol/L (98-107); Cholesterol 208 mg/dL (0-200); Estimated Glomerular Filt Rate > 60; Glucose 103 mg/dL (65-110); HDL Direct 54 mg/dL; Potassium 4.7 mmol/L (3.4-5.0); Sodium 142 mmol/L (137-145); Triglycerides 171 mg/dL (<150)
[2022-07-02 18:50] LABS: LDL Cholesterol Direct 112 mg/dL
== END 2022-07-02 09:33 | disposition home or self-care (01) ==
PROVIDERS: PCP Family Medicine; Visit Provider Family Medicine
DX: E78.5 Hyperlipidemia, unspecified (principal); E03.9 Hypothyroidism, unspecified; Z13.228 Encounter for screening for other metabolic disorders
CPT/HCPCS: 36415; 80053; 80061; 84443

== ENCOUNTER 2023-10-05 17:38 | Emergency (ER) | payer OTHER, SELFPAY ==
[2023-10-05 17:39] VITALS: BP 134/97; PULSE 107; RESP 20; TEMP 36.6; O2SAT 99
--- NOTE | 2023-10-05 18:09 | ED.GENADULT ---
HPI - General Adult General Chief complaint: Abdominal Pain Stated complaint: NV Time Seen by Provider: 10/05/23 17:57 Source: patient Mode of arrival: ambulatory Limitations: no limitations History of Present Illness HPI narrative: This is a 38-year-old male with PMH of gastroparesis, GERD, HTN who presents to the ED with chief complaint of nausea and vomiting beginning 2 days ago. Reports it started to get better Friday morning but ever since then has had nonstop episodes of emesis. Reports taking his normal dose of omeprazole and 1 dose of Compazine which he has had prescribed for gastroparesis. Patient feels like this is an episode of gastroparesis. Reports some mild pain to the epigastrium. States that pushing on the epigastrium helps the pain to go away. Denies fevers, chills, problems with bowel movements, urinary symptoms, chest pain, shortness of breath, syncope. Related Data Allergies Allergy/AdvReac Type Severity Reaction Status Date / Time No Known Allergies Allergy Verified 10/05/23 18:03 Review of Systems Review of Systems: All systems as dictated in [facility] Past Medical History Medical History Anxiety state, unspecified Diarrhea Due for fasting blood test Dyslipidemia, goal LDL below 130 Epigastric pain Gastroparesis GERD (gastroesophageal reflux disease) Hypertension Hypothyroidism (acquired) Nausea Nausea & vomiting Surgical History Surgical History History of endoscopy Family History Family History Mother Family history of thyroid disease Father Family history of elevated blood lipids Other Primary stomach malignancy Social History Social History Smoking status: Former smoker Smoking end date: 08/25/12 Substance use: current Substance use type: marijuana Lack of Transportation: No Lack of Food: Never True Current Housing: I Have Housing Concerned About Future Housing: No Difficulty Paying Gas/Electric Bills: No Difficulty Paying for Meds: No Currently Unemployed: No Education: Decline to Answer Difficulty w/ Childcare or Family Care: No Gender identity (if verbalized by the patient): Male Exam Narrative: GENERAL: Appears dry on exam. Active episodes of emesis. HEAD: Normocephalic, atraumatic. EYES: PERRLA and EOMI. ENT: Nares clear, no rhinorrhea or epistaxis. Mucous membranes moist. Oropharynx without tonsillar hypertrophy exudate or other lesions. NECK: Supple. No adenopathy or masses. CHEST: No respiratory distress. Clear to auscultation. No wheezes rales or rhonchi HEART: Regular rate and rhythm. No murmur heard. Normal peripheral pulses. ABDOMEN: Soft, nontender, nondistended, normal active bowel sounds. MSK: Normal range of motion. No edema. SKIN: Warm, dry, no rash. NEURO: Alert and oriented x3. No focal deficits. PSYCH: Normal mood and affect. Course Vital Signs Vital signs: Vital Signs Temperature 97.9 F 10/05/23 17:39 Pulse Rate 107 H 10/05/23 17:39 Respiratory Rate 20 10/05/23 17:39 Blood Pressure 134/97 H 10/05/23 17:39 Pulse Oximetry 99 10/05/23 17:39 Oxygen Delivery Room Air 10/05/23 17:39 Temperature 97.9 F 10/05/23 17:39 Pulse Rate 107 H 10/05/23 17:39 Respiratory Rate 20 10/05/23 17:39 Blood Pressure 134/97 H 10/05/23 17:39 Pulse Oximetry 99 10/05/23 17:39 Oxygen Delivery Room Air 10/05/23 17:39 Medical Decision Making MDM Narrative Medical decision making narrative: This is a 38-year-old male who presents to the ED with chief complaint of nausea and vomiting past couple days. History of gastroparesis and patient feels like he is having an episode of this along with GERD. Vitals show initial slight tachycardia but hemodynamically stable and w
[2023-10-05 18:12] LABS: Basophils Absolute Auto 0.1 K/mm3 (0.0-0.1); Basophils Percent Auto 0.4 % (0.2-1.2); Eosinophils Absolute Auto 0.1 K/mm3 (0-0.3); Eosinophils Percent Auto 0.7 % (0-4.4); Hematocrit 46.5 % (42.0-52.0); Immature Granulocyte Absolute 0.06 K/mm3 (0.00-0.031); Immature Granulocyte Percent A 0.4 % (0-0.5); Lymphocytes Absolute Auto 2.06 K/mm3 (0.9-3.2); Lymphocytes Percent Auto 15.3 % (18.3-44.2); Mean Corpuscular HGB Conc 34.4 g/dl (32-36); Mean Corpuscular Hemoglobin 28.8 pg (26-34); Mean Corpuscular Volume 83.6 fl (80-100); Mean Platelet Volume 9.5 fl (7.4-10.4); Monocytes Absolute Auto 0.7 K/mm3 (0.1-0.6); Monocytes Percent Auto 5.1 % (2.6-8.5); Neutrophils Absolute Auto 10.5 K/mm3 (1.3-6.7); Neutrophils Percent Auto 78.1 % (45.5-73.1); Platelet Count Result 413 k/mm3 (150-375); Red Blood Count 5.56 M/mm3 (4.6-6.20); Red Cell Distribution Width 13.3 % (11.5-14.5); White Blood Count 13.4 K/mm3 (4.5-10.0)
[2023-10-05 18:15] LABS: Appearance Urine Cloudy (Clear); Bacteria Urine None Seen /hpf; Bilirubin Urine 2+ (Negative); Blood Urine 1+ (Negative); Color Urine Dark Yellow (Yellow); Glucose Urine UA Negative (Negative); Ketones Urine 1+ mg/dL (Negative); Leukocyte Esterase Ur Negative LEU/UL (Negative); Mucus Urine Present /lpf; Need Manual Microscopic Reviewed; Nitrate Urine Negative (Negative); Protein Urine 2+ mg/dL (Negative); Squamous Epithelial Cell Urine Occasional /hpf (Few); WBC Urine 0-5 /hpf
[2023-10-05 18:16] LABS: Add Urine Microscopic? YES
[2023-10-05] MEDS: SODIUM CHLORIDE 0.9% IV 1,000 ML 999 ML IV CONT (18:16)
[2023-10-05] MEDS: ONDANSETRON INJ 4 MG/2 ML VIAL IV PUSH (18:16)
[2023-10-05] MEDS: FAMOTIDINE 20 MG/2 ML VIAL IV PUSH (18:16)
[2023-10-05 18:32] LABS: Alanine Aminotransferase 30 U/L (6-50); Albumin Level 4.9 g/dL (3.5-5.1); Alkaline Phosphatase 106 U/L (38-126); Anion Gap 12 mmol/L (8-16); Aspartate Amino Transferase 35 U/L (17-59); Blood Urea Nitrogen 8 mg/dL (9-20); Calcium 10.2 mg/dL (8.4-10.2); Carbon Dioxide 23 mmol/L (22-30); Chloride 105 mmol/L (98-107); Estimated CRCL calculation 99 ml/min; Estimated Glomerular Filt Rate > 60; Glucose 125 mg/dL (65-110); Lipase 58 U/L (23-300); Potassium 3.8 mmol/L (3.4-5.0); Sodium 140 mmol/L (137-145)
--- NOTE | 2023-10-05 18:32 | ECG_ITS ---
Measurements Intervals [place] Rate: 92 P: 56 SC: 156 QRS: 22 QRSD: 91 T: 55 QT: 351 QTc: 436 Interpretive Statements SINUS RHYTHM POSSIBLE LEFT ATRIAL ENLARGEMENT [-0.1mV P-WAVE IN V1/V2] BORDERLINE ECG NO PREVIOUS ECG AVAILABLE FOR COMPARISON Electronically Signed On 10-06-2023 8:39:02 [employer] by Silvestre Fraire M.D.
[2023-10-05] MEDS: HALOPERIDOL LACTATE 5 MG/ML VIAL IM (18:51)
[2023-10-05 19:13] VITALS: BP 138/85; PULSE 87; RESP 15; TEMP 36.4; O2SAT 100
[2023-10-05] MEDS: BELLADONNA ALK/PHENOB ELIX 10 ML, MAG HYDROX/ALUMINUM HYD/SIMETH 30 ML, LIDOCAINE HCL 2... PO (19:25)
== END 2023-10-05 20:08 | disposition home or self-care (01) ==
PROVIDERS: Emergency Medicine; Emergency Provider Physician Assistant; PCP Family Medicine
DX: R11.2 Nausea with vomiting, unspecified (principal); I10 Essential (primary) hypertension; E78.5 Hyperlipidemia, unspecified; E03.9 Hypothyroidism, unspecified; K21.9 Gastro-esophageal reflux disease without esophagitis; K31.84 Gastroparesis; Z87.891 Personal history of nicotine dependence; R94.31 Abnormal electrocardiogram [ECG] [EKG]
CPT/HCPCS: 36415; 80053; 81001; 83690; 85025; 93005; 96361; 96372; 96374; 96375; 99284; A9270; J1630; J2405; J7030

== ENCOUNTER 2023-12-15 09:20 | Outpatient (CLI) | payer OTHER, SELFPAY ==
[2023-12-15 12:00] LABS: Cholesterol 217 mg/dL (0-200); HDL Direct 49 mg/dL; Triglycerides 291 mg/dL (<150)
[2023-12-15 12:11] LABS: LDL Cholesterol Direct 120 mg/dL
[2023-12-15 21:37] LABS: Hemoglobin A1C 5.1 % (<5.7)
== END 2023-12-15 09:21 | disposition home or self-care (01) ==
LOC: ANHGOSHLAB 09:22
PROVIDERS: PCP Family Medicine; Visit Provider Family Medicine
DX: Z13.220 Encounter for screening for lipoid disorders (principal); R73.01 Impaired fasting glucose; Z13.29 Encounter for screening for other suspected endocrine disorder
CPT/HCPCS: 36415; 80061; 83036; 84439; 84443; 84480

== ENCOUNTER 2024-05-03 10:32 | Outpatient (CLI) | payer OTHER, SELFPAY ==
[2024-05-03 15:17] LABS: Basophils Absolute Auto 0.1 K/mm3 (0.0-0.1); Eosinophils Absolute Auto 0.1 K/mm3 (0-0.3); Eosinophils Percent Auto 1.6 % (0-4.4); Hematocrit 38.8 % (42.0-52.0); Hemoglobin 12.3 g/dL (14.0-18.0); Immature Granulocyte Absolute 0.02 K/mm3 (0.00-0.031); Immature Granulocyte Percent A 0.4 % (0-0.5); Lymphocytes Absolute Auto 1.87 K/mm3 (0.9-3.2); Mean Corpuscular HGB Conc 31.7 g/dl (32-36); Mean Corpuscular Hemoglobin 26.7 pg (26-34); Mean Corpuscular Volume 84.2 fl (80-100); Mean Platelet Volume 9.9 fl (7.4-10.4); Monocytes Absolute Auto 0.5 K/mm3 (0.1-0.6); Monocytes Percent Auto 9.5 % (2.6-8.5); Neutrophils Absolute Auto 2.6 K/mm3 (1.3-6.7); Neutrophils Percent Auto 50.5 % (45.5-73.1); Platelet Count Result 415 k/mm3 (150-375); Red Blood Count 4.61 M/mm3 (4.6-6.20); Red Cell Distribution Width 13.5 % (11.5-14.5); White Blood Count 5.1 K/mm3 (4.5-10.0)
[2024-05-03 16:18] LABS: Carbon Dioxide 25 mmol/L (22-30); Chloride 104 mmol/L (98-107); Sodium 139 mmol/L (137-145)
[2024-05-03 16:19] LABS: Alanine Aminotransferase 38 U/L (6-50); Albumin Level 4.8 g/dL (3.5-5.1); Alkaline Phosphatase 105 U/L (38-126); Anion Gap 10 mmol/L (4-12); Aspartate Amino Transferase 61 U/L (17-59); Bilirubin,Total 0.4 mg/dL (0.2-1.3); Blood Urea Nitrogen 15 mg/dL (9-20); Calcium 9.6 mg/dL (8.4-10.2); Cholesterol 198 mg/dL (0-200); Estimated Glomerular Filt Rate > 60; Glucose 94 mg/dL (65-110); HDL Direct 58 mg/dL; Triglycerides 116 mg/dL (<150)
[2024-05-03 16:29] LABS: LDL Cholesterol Direct 110 mg/dL
[2024-05-03 16:40] LABS: Free T4 Free Thyroxine 1.09 ng/mL (0.78-2.19)
[2024-05-05 08:18] LABS: Thyroglobulin 18.5 ng/mL; Thyroglobulin Antibodies <1 IU/mL (< or = 1)
== END 2024-05-03 10:33 | disposition home or self-care (01) ==
LOC: ANHGOSHLAB 10:33
PROVIDERS: PCP Family Medicine; Visit Provider Family Medicine
DX: E03.9 Hypothyroidism, unspecified (principal); R53.83 Other fatigue; Z13.228 Encounter for screening for other metabolic disorders; Z13.220 Encounter for screening for lipoid disorders
CPT/HCPCS: 36415; 80053; 80061; 84432; 84439; 84443; 85025; 86800

== ENCOUNTER 2024-05-10 08:09 | Outpatient (CLI) | payer OTHER, SELFPAY ==
--- NOTE | ~2024-05-10 | US_ITS ---
Limited Abdominal Sonogram: Real-time sonographic imaging of the right upper quadrant was performed. Clinical History: Abnormal liver enzymes Findings: The liver appears normal with no evidence of mass lesion or bile duct dilatation. Main por sandra vein demonstrates normal direction of flow. The gallbladder is well distended, and appears normal with no evidence of gallstone or wall thickening. The common bile duct measures 5 mm. The visualize d pancreas, aorta, and IVC are unremarkable. Impression: No significant abnormality seen. Reviewed, dictated and finalized at location M. Impression: No significant abnormality seen.
== END 2024-05-10 08:10 | disposition home or self-care (01) ==
LOC: GOSHIMG 08:10
PROVIDERS: PCP Family Medicine; Visit Provider Family Medicine
DX: R74.01 Elevation of levels of liver transaminase levels (principal)
CPT/HCPCS: 76705

== ENCOUNTER 2024-05-14 08:34 | Outpatient (CLI) | payer OTHER, SELFPAY ==
[2024-05-14 16:10] LABS: Iron 53 ug/dL (49-181)
[2024-05-14 16:19] LABS: Percent Iron Saturation 11 % (20-50)
[2024-05-14 16:46] LABS: Ferritin 7.36 ng/mL (17.9-464)
[2024-05-14 17:02] LABS: Folic Acid 4.1 ng/mL (2.76->20)
== END 2024-05-14 08:35 | disposition home or self-care (01) ==
LOC: ANHGOSHLAB 08:35
PROVIDERS: PCP Family Medicine; Visit Provider Family Medicine
DX: D50.9 Iron deficiency anemia, unspecified (principal); D64.9 Anemia, unspecified
CPT/HCPCS: 36415; 82607; 82728; 82746; 83540; 83550

== ENCOUNTER 2024-10-06 07:17 | Emergency (ER) | payer OTHER, SELFPAY ==
--- NOTE | ~2024-10-06 | CT_ITS ---
EXAMINATION: CT abdomen pelvis w con DATE: 10/06/2024 08:47 INDICATION: Lower abdominal pain TECHNIQUE: Computed tomography (CT) of the abdomen and pelvis was performed with 100 mL Omnipaque-350 intravenous contrast. Automated exposure control and iterative reconstruction technique were employe d. The dose-length product was 1542.46 mGy-cm. COMPARISON: None FINDINGS: Lung bases are clear. Heart size is normal. No pericardial or pleural effusion. Liver, gallbladder, s pleen, pancreas, bilateral adrenal glands and kidneys are normal. Bowels including the appendix are n ormal. Bladder is normal. Prostatic calcifications. No free intraperitoneal gas or fluid. No patholog ically enlarged abdominal or pelvic lymphadenopathy. Chronic appearing mild anterior wedging at T11-L 1. Moderate to severe lumbar and lower thoracic spondylosis. IMPRESSION: 1. No acute intra-abdominal/pelvic process. Reviewed, dictated and finalized at location A. UCT TRAINER
[2024-10-06 07:20] VITALS: BP 172/89; PULSE 136; RESP 28; TEMP 36.6; O2SAT 99
--- NOTE | 2024-10-06 07:38 | ED_ITS ---
HPI - Abdominal Pain General Chief Complaint: Abdominal Pain Stated Complaint: gastroparesis flare up Time Seen by Provider: 10/06/24 07:32 History of Present Illness HPI narrative: Pt presents with lower abdominal pain since 0200. Pt has history of gastroparesis and feels similar except it is lower and he is not vomiting. Pt has no upper abdominal pain. Pt denies dysuria or frequency and has had normal bowel movements. Pt denies fever. Related Data Allergies Allergy/AdvReac Type Severity Reaction Status Date / Time No Known Allergies Allergy Verified 09/16/24 09:25 Review of Systems 2 Review of Systems: All systems reviewed & are unremarkable except as noted in HPI and below PMFSH Past Medical History Medical History Due for fasting blood test Gastroparesis Diarrhea Nausea Nausea & vomiting Epigastric pain GERD (gastroesophageal reflux disease) Hypertension Anxiety state, unspecified Dyslipidemia, goal LDL below 130 Hypothyroidism (acquired) Surgical History Surgical History History of endoscopy Family History Family History Mother Family history of thyroid disease Father Family history of elevated blood lipids Other Primary stomach malignancy Social History Social History Social History: caffeine minimal 1-2 cups black coffee daily Smoking status: Former smoker Smoking end date: 08/25/12 Alcohol intake: never Substance use: current Substance use type: marijuana Lack of Transportation: No Lack of Food: Never True Current Housing: Decline to Answer Concerned About Future Housing: Decline to Answer Difficulty Paying Gas/Electric Bills: Decline to Answer Difficulty Paying for Meds: Decline to Answer Currently Unemployed: Decline to Answer Education: Bachelor's Degree Difficulty w/ Childcare or Family Care: Decline to Answer Exam 2 Const: General: healthy appearing and no acute distress Nutritional Appearance: well nourished Orientation/consciousness: patient oriented x3 Limitations: no limitations Resp: Effort & Inspection: normal respiratory effort Auscultation: clear to auscultation bilaterally Cardio: Rate: regular rate Rhythm: regular rhythm GI: GI Palp: Yes Soft to palpation and Yes Tenderness to palpation present (GI) (low abdomen suprapubic actually get some relief when push up superiorly) Auscultation: normal bowel sounds : General: Yes no CVA tenderness Back/Spine/Pelvis: Back: no CVA tenderness Skin: General skin exam: normal color Rashes: no rashes Wounds: no wounds Neuro: General: patient oriented x3, moves all extremities and no focal motor deficits Cranial nerves: Yes Nystagmus not present Speech: normal speech Extrem: General: normal to inspection and no clubbing, cyanosis or edema Psych: Mental Status: mental status grossly normal Affect: normal affect Attitude: cooperative Course Vital Signs Vital signs: Vital Signs Temperature 97.9 F 10/06/24 07:20 Pulse Rate 136 H 10/06/24 07:20 Respiratory Rate 28 H 10/06/24 07:20 Blood Pressure 172/89 H 10/06/24 07:20 Pulse Oximetry 99 10/06/24 07:20 Oxygen Delivery Room Air 10/06/24 07:20 Temperature 97.9 F 10/06/24 07:20 Pulse Rate 80 10/06/24 10:00 Respiratory Rate 16 10/06/24 10:00 Blood Pressure 138/70 10/06/24 10:00 Pulse Oximetry 97 10/06/24 10:00 Oxygen Delivery Room Air 10/06/24 07:20 MDM - Abdominal Pain MDM Narrative Medical decision making narrative: Pt presents with lower abdominal pain sicne 0200. Pt has hx of gastroparesis but this pain is lower and no vomiting. will check labs, UA and CT and give something for pain. pt feels much better after meds. slight wbc elevation and co2 a bit low but ua and ct neg so no real acute process noted and pt improved. will send home on bentyl. Lab Data 10/06/24 07:33 10/06/24 07:33 Labs: Lab Results 10/06/24 10/06/24 Range/Units 07:33 08:01 WBC 11.8 H (4.5-10.0) K/mm3 RBC 4.75 (4.6-6.20) M/mm3 Hgb 11.3 L (14.0-18.0) g/dL Hct 37.2 L (42.0-52.0) % MCV 78.3 L (80-100) fl MCH 23.8 L (26-34) pg MCHC 30.4 L (32-36) g/dl RDW 15.3 H (11.5-14.5) % Plt Count 505 H (150-375) k/mm3 MPV 9.9 (7.4-10.4) fl Immature Gran % (Auto) 0.4 (0-0.5) % Neut % (Auto) 82.6 H (45.5-73.1) % Lymph % (Auto) 13.3 L (18.3-44.2) % [place] % (Auto) 3.0 (2.6-8.5) % Eos % (Auto) 0.2 (0-4.4) % Baso % (Auto) 0.5 (0.2-1.2) % Lymph # (Auto) 1.56 (0.9-3.2) K/mm3 [place] # (Auto) 0.4 (0.1-0.6) K/mm3 Eos # (Auto) 0.0 (0-0.3) K/mm3 Baso # (Auto) 0.1 (0.0-0.1) K/mm3 Abs Immat Gran (auto) 0.05 H (0.00-0.031) K/mm3 Absolute Neuts (auto) 9.7 H (1.3-6.7) K/mm3 Absolute Nucleated RBC 0.000 (0.0-0.012) K/mm3 Nucleated RBC % 0.0 (0.0-0.2) % Sodium 143 (137-145) mmol/L Potassium 3.6 (3.4-5.0) mmol/L Chloride 106 (98-107) mmol/L Carbon Dioxide 16 L (22-30) mmol/L Anion Gap 21 H (4-12) mmol/L BUN 11 (9-20) mg/dL Creatinine 1.00 (0.7-1.3) mg/dL Estim Creat Clear Calc 116 ml/min Estimated GFR > 60 (59 - ) Glucose 136 H (65-110) mg/dL Calcium 10.0 (8.4-10.2) mg/dL Total Bilirubin 0.9 (0.2-1.3) mg/dL AST 34 (17-59) U/L ALT 36 (6-50) U/L Alkaline Phosphatase 114 (38-126) U/L Total Protein 9.0 H (6.3-8.2) g/dL Albumin 5.2 H (3.5-5.1) g/dL Lipase 84 (23-300) U/L Urine Color Yellow (Yellow) Urine Appearance Clear (Clear) Urine pH 6.0 (5.0-9.0) Ur Specific [place] 1.025 (1.001-1.035) Urine Protein 1+ H (Negative) mg/dL Urine Glucose (UA) Negative (Negative) mg/dL Urine Ketones 2+ H (Negative) mg/dL Ur Blood (Man) Negative (Negative) Urine Nitrate Negative (Negative) Urine Bilirubin Negative (Negative) Urine Urobilinogen 0.2 (<2.0) mg/dL Leukocyte Esterase Rfl Negative (Negative) LUIS/UL Urine RBC 0-2 (0-2) /hpf Urine WBC 0-5 (0-3) /hpf Ur Squamous Epith Cells None seen (Few) /hpf Urine Bacteria None seen /hpf Urine Casts 0-2 Imaging Data Radiologist's impression: ITS Impressions Abdomen/Pelvis CT 10/06/24 08:55 IMPRESSION: 1. No acute intra-abdominal/pelvic process. Discharge Plan Discharge Clinical Impression: Abdominal pain Patient Disposition: Home, Self-Care Condition: Improved Instructions: Antibiotic Form, Acute Abdominal Pain (ED) Patient Language: Mohawk Prescriptions: New dicyclomine 20 mg tablet 20 mg PO QID Qty: 14 0RF No Action metoclopramide HCl [Reglan] 5 mg tablet 5 mg PO .hs 30 Days Qty: 30 5RF eszopiclone [Lunesta] 2 mg tablet 2 mg PO QHS Qty: 1 0RF Rx Instructions: Take 20-30 minutes before bedtime on night of sleep study. ferrous sulfate 324 mg (65 mg iron) tablet,delayed release (DR/EC) 324 mg PO DAILY Qty: 30 1RF omeprazole 20 mg capsule,delayed release(DR/EC) See Rx Instructions .ROUTE .COMPLEX Qty: 180 5RF Dose Instruction: TAKE 1 CAPSULE BY MOUTH TWICE DAILY Rx Instructions: TAKE 1 CAPSULE BY MOUTH TWICE DAILY levothyroxine 50 mcg tablet 50 mcg PO DAILY Qty: 90 2RF rosuvastatin 10 mg tablet 10 mg PO DAILY Qty: 90 1RF escitalopram oxalate 20 mg tablet 20 mg PO DAILY Qty: 90 1RF lorazepam 0.5 mg tablet 0.5 mg PO BID PRN (Reason: anxiety) Qty: 60 0RF Follow-up/Referrals: Marivel Moya DO [Primary Care Provider] -
[2024-10-06 07:47] LABS: Basophils Absolute Auto 0.1 K/mm3 (0.0-0.1); Basophils Percent Auto 0.5 % (0.2-1.2); Eosinophils Percent Auto 0.2 % (0-4.4); Hematocrit 37.2 % (42.0-52.0); Hemoglobin 11.3 g/dL (14.0-18.0); Immature Granulocyte Absolute 0.05 K/mm3 (0.00-0.031); Immature Granulocyte Percent A 0.4 % (0-0.5); Lymphocytes Absolute Auto 1.56 K/mm3 (0.9-3.2); Lymphocytes Percent Auto 13.3 % (18.3-44.2); Mean Corpuscular HGB Conc 30.4 g/dl (32-36); Mean Corpuscular Hemoglobin 23.8 pg (26-34); Mean Corpuscular Volume 78.3 fl (80-100); Mean Platelet Volume 9.9 fl (7.4-10.4); Monocytes Absolute Auto 0.4 K/mm3 (0.1-0.6); Neutrophils Absolute Auto 9.7 K/mm3 (1.3-6.7); Neutrophils Percent Auto 82.6 % (45.5-73.1); Platelet Count Result 505 k/mm3 (150-375); Red Blood Count 4.75 M/mm3 (4.6-6.20); Red Cell Distribution Width 15.3 % (11.5-14.5); White Blood Count 11.8 K/mm3 (4.5-10.0)
[2024-10-06] MEDS: SODIUM CHLORIDE 0.9% IV 1,000 ML 999 ML IV CONT (07:53)
[2024-10-06] MEDS: DICYCLOMINE HCL INJ 20 MG/2 ML VIAL IM (07:53)
[2024-10-06] MEDS: ONDANSETRON INJ 4 MG/2 ML VIAL IV PUSH (07:53)
[2024-10-06] MEDS: MORPHINE SULFATE (*CRX) 4 MG/ML INJ IV PUSH (07:55)
[2024-10-06 08:12] LABS: Add Urine Microscopic? YES; Appearance Urine Clear (Clear); Bacteria Urine None Seen /hpf; Bilirubin Urine Negative (Negative); Blood Urine Negative (Negative); Color Urine Yellow (Yellow); Glucose Urine UA Negative (Negative); Ketones Urine 2+ mg/dL (Negative); Leukocyte Esterase Ur Negative LEU/UL (Negative); Nitrate Urine Negative (Negative); Non Pathogenic Casts 0-2; Protein Urine 1+ mg/dL (Negative); RBC Urine 0-2 /hpf (0-2); Specific Grav Ur 1.025 (1.001-1.035); Squamous Epithelial Cell Urine None Seen /hpf (Few); Urobilinogen Urine 0.2 mg/dL (<2.0); WBC Urine 0-5 /hpf (0-3)
[2024-10-06 08:24] LABS: Albumin Level 5.2 g/dL (3.5-5.1); Alkaline Phosphatase 114 U/L (38-126); Anion Gap 21 mmol/L (4-12); Aspartate Amino Transferase 34 U/L (17-59); Bilirubin,Total 0.9 mg/dL (0.2-1.3); Blood Urea Nitrogen 11 mg/dL (9-20); Carbon Dioxide 16 mmol/L (22-30); Chloride 106 mmol/L (98-107); Estimated CRCL calculation 116 ml/min; Estimated Glomerular Filt Rate > 60; Glucose 136 mg/dL (65-110); Lipase 84 U/L (23-300); Potassium 3.6 mmol/L (3.4-5.0); Sodium 143 mmol/L (137-145)
[2024-10-06 08:39] LABS: Alanine Aminotransferase 36 U/L (6-50)
[2024-10-06 10:00] VITALS: BP 138/70; PULSE 80; RESP 16; O2SAT 97
== END 2024-10-06 10:00 | disposition home or self-care (01) ==
PROVIDERS: Emergency Provider Emergency Medicine; PCP Family Medicine
DX: R10.30 Lower abdominal pain, unspecified (principal); I10 Essential (primary) hypertension; E78.5 Hyperlipidemia, unspecified; E03.9 Hypothyroidism, unspecified; K31.84 Gastroparesis; K21.9 Gastro-esophageal reflux disease without esophagitis; F41.9 Anxiety disorder, unspecified; Z87.891 Personal history of nicotine dependence; Z79.899 Other long term (current) drug therapy
CPT/HCPCS: 36415; 74177; 80053; 81001; 83690; 85025; 96361; 96372; 96374; 96375; 99284; J0500; J2270; J2405; J7030; Q9967

== ENCOUNTER 2024-10-09 07:00 | Emergency (ER) | payer OTHER, SELFPAY ==
[2024-10-09 07:03] VITALS: BP 133/92; PULSE 106; RESP 20; TEMP 36.2; O2SAT 100
[2024-10-09 07:35] LABS: Add Urine Microscopic? NO; Appearance Urine Clear (Clear); Bilirubin Urine Negative (Negative); Blood Urine Negative (Negative); Color Urine Yellow (Yellow); Glucose Urine UA Negative (Negative); Ketones Urine 2+ mg/dL (Negative); Leukocyte Esterase Ur Negative LEU/UL (Negative); Nitrate Urine Negative (Negative); Protein Urine Negative (Negative); Specific Grav Ur 1.015 (1.001-1.035); Urobilinogen Urine 0.2 mg/dL (<2.0); pH Urine 5.5 (5.0-9.0)
--- NOTE | 2024-10-09 07:47 | ED_ITS ---
HPI - General Adult General Chief complaint: Abdominal Pain Stated complaint: Abd pain, nausea Time Seen by Provider: 10/09/24 07:23 History of Present Illness HPI narrative: Patient is a 39-year-old male who presents ER with abdominal discomfort. Mid abdomen and aching/cramping in nature. Intermittently improves with dicyclomine. Also improves with pressure below the umbilicus. He is not vomiting but has the sensation that he needs to vomit. Does have history of gastroparesis but this feels different. Has been in the ER twice this week without significant lab or imaging finding. He has also been having diarrhea. Related Data Allergies Allergy/AdvReac Type Severity Reaction Status Date / Time No Known Allergies Allergy Verified 10/09/24 07:06 Review of Systems 2 Review of Systems: All systems reviewed & are unremarkable except as noted in HPI and below Constitutional: Constitutional: Reports no additional constitutional complaints Cardiovascular: Cardiovascular: Reports no additional cardiovascular complaints Respiratory: Respiratory: Reports no additional respiratory complaints Gastrointestinal: Gastrointestinal: Reports no additional gastrointestinal complaints Musculoskeletal: Musculoskeletal: Reports no additional musculoskeletal complaints [facility] Past Medical History Medical History Due for fasting blood test Gastroparesis Diarrhea Nausea Nausea & vomiting Epigastric pain GERD (gastroesophageal reflux disease) Hypertension Anxiety state, unspecified Dyslipidemia, goal LDL below 130 Hypothyroidism (acquired) Surgical History Surgical History History of endoscopy Family History Family History Mother Family history of thyroid disease Father Family history of elevated blood lipids Other Primary stomach malignancy Social History Social History Social History: caffeine minimal 1-2 cups black coffee daily Smoking status: Former smoker Smoking end date: 08/25/12 Alcohol intake: never Substance use: current Substance use type: marijuana Lack of Transportation: No Lack of Food: Never True Current Housing: Decline to Answer Concerned About Future Housing: Decline to Answer Difficulty Paying Gas/Electric Bills: Decline to Answer Difficulty Paying for Meds: Decline to Answer Currently Unemployed: Decline to Answer Education: Bachelor's Degree Difficulty w/ Childcare or Family Care: Decline to Answer Exam 2 Narrative: GENERAL: Well-appearing, well-nourished, and in no acute distress. HEAD: Normocephalic, atraumatic. ENT: Mucous membranes moist. CHEST: Clear to auscultation. No respiratory distress. HEART: Tachycardic and regular. Normal peripheral pulses. ABDOMEN: Soft, nontender, nondistended. EXTREMITIES: Normal range of motion. No edema. SKIN: Warm, dry, no rash. NEURO: Alert and oriented x3. PSYCH: Normal mood and affect. Course Course Emergency Course: Symptoms improved with Zofran and fluid. Labs without significant abnormality. Chronic anemia. Follow-up with PCP. Refill Zofran. Vital Signs Vital signs: Vital Signs Temperature 97.1 F L 10/09/24 07:03 Pulse Rate 106 H 10/09/24 07:03 Respiratory Rate 20 10/09/24 07:03 Blood Pressure 133/92 H 10/09/24 07:03 Pulse Oximetry 100 10/09/24 07:03 Oxygen Delivery Room Air 10/09/24 07:03 Temperature 97.1 F L 10/09/24 07:03 Pulse Rate 85 10/09/24 09:12 Respiratory Rate 16 10/09/24 09:12 Blood Pressure 110/76 10/09/24 09:12 Pulse Oximetry 96 10/09/24 09:12 Oxygen Delivery Room Air 10/09/24 07:03 Medical Decision Making Vital Signs Vital Signs: Vital Signs Temperature 97.1 F L 10/09/24 07:03 Pulse Rate 106 H 10/09/24 07:03 Respiratory Rate 20 10/09/24 07:03 Blood Pressure 133/92 H 10/09/24 07:03 Pulse Oximetry 100 10/09/24 07:03 Oxygen Delivery Room Air 10/09/24 07:03 Temperature 97.1 F L 10/09/24 07:03 Pulse Rate 85 10/09/24 09:12 Respiratory Rate 16 10/09/24 09:12 Blood Pressure 110/76 10/09/24 09:12 Pulse Oximetry 96 10/09/24 09:12 Oxygen Delivery Room Air 10/09/24 07:03 Lab Data 10/09/24 07:34 10/09/24 07:34 Labs: Lab Results 02/15/25 02/15/25 Range/Units 07:28 07:34 WBC 7.0 (4.5-10.0) K/mm3 RBC 4.60 (4.6-6.20) M/mm3 Hgb 11.0 L (14.0-18.0) g/dL Hct 35.5 L (42.0-52.0) % MCV 77.2 L (80-100) fl MCH 23.9 L (26-34) pg MCHC 31.0 L (32-36) g/dl RDW 15.6 H (11.5-14.5) % Plt Count 415 H (150-375) k/mm3 MPV 9.8 (7.4-10.4) fl Immature Gran % (Auto) 0.4 (0-0.5) % Neut % (Auto) 65.5 (45.5-73.1) % Lymph % (Auto) 25.3 (18.3-44.2) % [place] % (Auto) 6.9 (2.6-8.5) % Eos % (Auto) 1.3 (0-4.4) % Baso % (Auto) 0.6 (0.2-1.2) % Lymph # (Auto) 1.76 (0.9-3.2) K/mm3 [place] # (Auto) 0.5 (0.1-0.6) K/mm3 Eos # (Auto) 0.1 (0-0.3) K/mm3 Baso # (Auto) 0.0 (0.0-0.1) K/mm3 Abs Immat Gran (auto) 0.03 (0.00-0.031) K/mm3 Absolute Neuts (auto) 4.6 (1.3-6.7) K/mm3 Absolute Nucleated RBC 0.000 (0.0-0.012) K/mm3 Nucleated RBC % 0.0 (0.0-0.2) % Sodium 140 (137-145) mmol/L Potassium 3.7 (3.4-5.0) mmol/L Chloride 104 (98-107) mmol/L Carbon Dioxide 22 (22-30) mmol/L Anion Gap 14 H (4-12) mmol/L BUN 11 (9-20) mg/dL Creatinine 0.87 (0.7-1.3) mg/dL Estim Creat Clear Calc 133 ml/min Estimated GFR > 60 (59 - ) Glucose 89 (65-110) mg/dL Calcium 9.7 (8.4-10.2) mg/dL Total Bilirubin 0.8 (0.2-1.3) mg/dL AST 33 (17-59) U/L ALT 26 (6-50) U/L Alkaline Phosphatase 90 (38-126) U/L Total Protein 8.0 (6.3-8.2) g/dL Albumin 5.0 (3.5-5.1) g/dL Lipase 59 (23-300) U/L Urine Color Yellow (Yellow) Urine Appearance Clear (Clear) Urine pH 5.5 (5.0-9.0) Ur Specific [place] 1.015 (1.001-1.035) Urine Protein Negative (Negative) mg/dL Urine Glucose (UA) Negative (Negative) mg/dL Urine Ketones 2+ H (Negative) mg/dL Ur Blood (Man) Negative (Negative) Urine Nitrate Negative (Negative) Urine Bilirubin Negative (Negative) Urine Urobilinogen 0.2 (<2.0) mg/dL Leukocyte Esterase Rfl Negative (Negative) LUIS/UL Discharge Plan Discharge Clinical Impression: Nausea and vomiting Patient Disposition: Home, Self-Care Condition: Stable Instructions: Acute Nausea and Vomiting (ED) Additional Instructions: Return to the emergency department if you develop severe abdominal pain, severe nausea and vomiting to the point where you are unable to keep down fluids, if you develop chest pain or difficulty breathing, blood in your stool, dizziness or fainting, or if you develop any other new or concerning symptoms as these could be signs of more serious medical illness. Try to stay well hydrated. Patient Language: [place] Prescriptions: New ondansetron 4 mg tablet,disintegrating 4 mg PO Q6H PRN (Reason: nausea and vomiting) Qty: 10 0RF No Action metoclopramide HCl [Reglan] 5 mg tablet 5 mg PO .hs 30 Days Qty: 30 5RF eszopiclone [Lunesta] 2 mg tablet 2 mg PO QHS Qty: 1 0RF Rx Instructions: Take 20-30 minutes before bedtime on night of sleep study. dicyclomine 20 mg tablet 20 mg PO QID Qty: 14 0RF ferrous sulfate 324 mg (65 mg iron) tablet,delayed release (DR/EC) 324 mg PO DAILY Qty: 30 1RF omeprazole 20 mg capsule,delayed release(DR/EC) See Rx Instructions .ROUTE .COMPLEX Qty: 180 5RF Dose Instruction: TAKE 1 CAPSULE BY MOUTH TWICE DAILY Rx Instructions: TAKE 1 CAPSULE BY MOUTH TWICE DAILY levothyroxine 50 mcg tablet 50 mcg PO DAILY Qty: 90 2RF rosuvastatin 10 mg tablet 10 mg PO DAILY Qty: 90 1RF escitalopram oxalate 20 mg tablet 20 mg PO DAILY Qty: 90 1RF lorazepam 0.5 mg tablet 0.5 mg PO BID PRN (Reason: anxiety) Qty: 60 0RF Follow-up/Referrals: Marivel Moya DO [Primary Care Provider] - 1 Week
[2024-10-09 07:49] LABS: Basophils Percent Auto 0.6 % (0.2-1.2); Eosinophils Absolute Auto 0.1 K/mm3 (0-0.3); Eosinophils Percent Auto 1.3 % (0-4.4); Hematocrit 35.5 % (42.0-52.0); Immature Granulocyte Absolute 0.03 K/mm3 (0.00-0.031); Immature Granulocyte Percent A 0.4 % (0-0.5); Lymphocytes Absolute Auto 1.76 K/mm3 (0.9-3.2); Lymphocytes Percent Auto 25.3 % (18.3-44.2); Mean Corpuscular Hemoglobin 23.9 pg (26-34); Mean Corpuscular Volume 77.2 fl (80-100); Mean Platelet Volume 9.8 fl (7.4-10.4); Monocytes Absolute Auto 0.5 K/mm3 (0.1-0.6); Monocytes Percent Auto 6.9 % (2.6-8.5); Neutrophils Absolute Auto 4.6 K/mm3 (1.3-6.7); Neutrophils Percent Auto 65.5 % (45.5-73.1); Platelet Count Result 415 k/mm3 (150-375); Red Cell Distribution Width 15.6 % (11.5-14.5)
[2024-10-09] MEDS: SODIUM CHLORIDE 0.9% IV 1,000 ML 999 ML IV CONT (07:51)
[2024-10-09] MEDS: ONDANSETRON INJ 4 MG/2 ML VIAL IV PUSH (07:51)
[2024-10-09 08:01] LABS: Alanine Aminotransferase 26 U/L (6-50); Alkaline Phosphatase 90 U/L (38-126); Anion Gap 14 mmol/L (4-12); Aspartate Amino Transferase 33 U/L (17-59); Bilirubin,Total 0.8 mg/dL (0.2-1.3); Blood Urea Nitrogen 11 mg/dL (9-20); Calcium 9.7 mg/dL (8.4-10.2); Carbon Dioxide 22 mmol/L (22-30); Chloride 104 mmol/L (98-107); Estimated CRCL calculation 133 ml/min; Estimated Glomerular Filt Rate > 60; Glucose 89 mg/dL (65-110); Lipase 59 U/L (23-300); Potassium 3.7 mmol/L (3.4-5.0); Sodium 140 mmol/L (137-145)
[2024-10-09 08:39] VITALS: BP 113/74; PULSE 87; RESP 16; O2SAT 97
--- NOTE | 2024-10-09 09:11 | PC.NURSE ---
Pt. reports pain has dropped from an 8/10 to a 3/10 and describes it as a dull ache. Pt. is no longer restless. VSS.
[2024-10-09 09:12] VITALS: BP 110/76; PULSE 85; RESP 16; O2SAT 96
--- NOTE | 2024-10-09 09:13 | PC.NURSE ---
MD Enamorado notified of pt. improved condition.
== END 2024-10-09 09:31 | disposition home or self-care (01) ==
PROVIDERS: Emergency Provider Emergency Medicine; PCP Family Medicine
DX: R11.2 Nausea with vomiting, unspecified (principal); I10 Essential (primary) hypertension; E78.5 Hyperlipidemia, unspecified; E03.9 Hypothyroidism, unspecified; K21.9 Gastro-esophageal reflux disease without esophagitis; K31.84 Gastroparesis; Z87.891 Personal history of nicotine dependence; Z79.899 Other long term (current) drug therapy
CPT/HCPCS: 36415; 80053; 81003; 83690; 85025; 96361; 96374; 99284; J2405; J7030

== ENCOUNTER 2024-10-09 12:12 | Emergency (ER) | payer OTHER, SELFPAY ==
[2024-10-09 12:16] VITALS: BP 147/104; PULSE 117; RESP 18; TEMP 36.4; O2SAT 100
--- NOTE | 2024-10-09 14:02 | ED_ITS ---
HPI - General Adult General Chief complaint: Abdominal Pain Stated complaint: abdominal pain Time Seen by Provider: 10/09/24 13:13 History of Present Illness HPI narrative: 39-year-old male presenting to the emergency department for evaluation of worsening abdominal cramping. Patient does have history of gastroparesis. Patient does follow-up with Dr. Pang. Patient was just evaluated emergency department few days ago did have a negative CT scan. Patient does have follow- up with Dr. Pang on . Patient states he present to the emergency department as he is still having persistent discomfort. Patient denies any worsening of the symptoms. Patient has been taking his Reglan and Zofran and, patient is moving his bowels but is reporting some diarrhea. Related Data Allergies Allergy/AdvReac Type Severity Reaction Status Date / Time No Known Allergies Allergy Verified 10/09/24 13:10 Review of Systems 2 Review of Systems: All systems reviewed & are unremarkable except as noted in HPI and below PMFSH Past Medical History Medical History Due for fasting blood test Gastroparesis Diarrhea Nausea Nausea & vomiting Epigastric pain GERD (gastroesophageal reflux disease) Hypertension Anxiety state, unspecified Dyslipidemia, goal LDL below 130 Hypothyroidism (acquired) Surgical History Surgical History History of endoscopy Family History Family History Mother Family history of thyroid disease Father Family history of elevated blood lipids Other Primary stomach malignancy Social History Social History Social History: caffeine minimal 1-2 cups black coffee daily Smoking status: Former smoker Smoking end date: 08/25/12 Alcohol intake: never Substance use: current Substance use type: marijuana Lack of Transportation: No Lack of Food: Never True Current Housing: Decline to Answer Concerned About Future Housing: Decline to Answer Difficulty Paying Gas/Electric Bills: Decline to Answer Difficulty Paying for Meds: Decline to Answer Currently Unemployed: Decline to Answer Education: Bachelor's Degree Difficulty w/ Childcare or Family Care: Decline to Answer Exam 2 Narrative: APPEARANCE: Well appearing, no pain, no distress, well-nourished. HEAD: normocephalic, atraumatic. EYES: PERRLA/EOMI, conjunctivae clear. NOSE: Normal no drainage EARS:TMS clear with good light reflex. THROAT: Pharynx clear, no exudate. NECK: Supple. No adenopathy, no masses. RESPIRATORY: Airway patent, respirations nonlabored. Clear to auscultation bilaterally, no rales, rhonchi, wheezing. CARDIOVASCULAR: Regular rate and rhythm without murmurs rubs or gallops. ABDOMINAL: Nontender to palpation, nonsurgical abdomen, normal bowel sounds MUSCULOSKELETAL: Moves all extremities. Strength/ROM intact, No edema, No calf tenderness. NEURO: Alert. Cranial nerves II through XII intact. SKIN: Warm, dry. Normal Color Course Vital Signs Vital signs: Vital Signs Temperature 97.6 F 10/09/24 12:16 Pulse Rate 117 H 10/09/24 12:16 Respiratory Rate 18 10/09/24 12:16 Blood Pressure 147/104 H 10/09/24 12:16 Pulse Oximetry 100 10/09/24 12:16 Temperature 97.6 F 10/09/24 12:16 Pulse Rate 102 H 10/09/24 16:31 Respiratory Rate 18 10/09/24 16:31 Blood Pressure 141/98 H 10/09/24 16:31 Pulse Oximetry 99 10/09/24 16:31 Medical Decision Making MDM Narrative Medical decision making narrative: A 39-year-old male present to the emergency department for evaluation for lower abdominal discomfort. Patient is currently afebrile with no leukocytosis and a stable hemoglobin, patient has no significant abnormalities on his CMP with a negative lactic acid, patient was treated with a L of IV fluids and IM Bentyl, patient denies any significant improvement in his pain but is not be in any significant discomfort. Differential Diagnosis Differential Diagnosis: Bowel spasm, colitis, diverticulitis or gastroparesis, pancreatitis Vital Signs Vital Signs: Vital Signs Temperature 97.6 F 10/09/24 12:16 Pulse Rate 117 H 10/09/24 12:16 Respiratory Rate 18 10/09/24 12:16 Blood Pressure 147/104 H 10/09/24 12:16 Pulse Oximetry 100 10/09/24 12:16 Temperature 97.6 F 10/09/24 12:16 Pulse Rate 102 H 10/09/24 16:31 Respiratory Rate 18 10/09/24 16:31 Blood Pressure 141/98 H 10/09/24 16:31 Pulse Oximetry 99 10/09/24 16:31 Lab Data Lab results reviewed: Yes I reviewed the patient's lab results. 10/09/24 14:06 10/09/24 14:06 Labs: Lab Results 10/09/24 Range/Units 14:06 WBC 8.1 (4.5-10.0) K/mm3 RBC 4.30 L (4.6-6.20) M/mm3 Hgb 10.4 L (14.0-18.0) g/dL Hct 33.1 L (42.0-52.0) % MCV 77.0 L (80-100) fl MCH 24.2 L (26-34) pg MCHC 31.4 L (32-36) g/dl RDW 15.7 H (11.5-14.5) % Plt Count 396 H (150-375) k/mm3 MPV 9.7 (7.4-10.4) fl Immature Gran % (Auto) 0.2 (0-0.5) % Neut % (Auto) 72.2 (45.5-73.1) % Lymph % (Auto) 20.5 (18.3-44.2) % Harney % (Auto) 6.3 (2.6-8.5) % Eos % (Auto) 0.7 (0-4.4) % Baso % (Auto) 0.1 L (0.2-1.2) % Lymph # (Auto) 1.67 (0.9-3.2) K/mm3 Harney # (Auto) 0.5 (0.1-0.6) K/mm3 Eos # (Auto) 0.1 (0-0.3) K/mm3 Baso # (Auto) 0.0 (0.0-0.1) K/mm3 Abs Immat Gran (auto) 0.02 (0.00-0.031) K/mm3 Absolute Neuts (auto) 5.9 (1.3-6.7) K/mm3 Absolute Nucleated RBC 0.000 (0.0-0.012) K/mm3 Nucleated RBC % 0.0 (0.0-0.2) % PT 13.8 (11.1-14.7) Seconds INR 1.0 APTT 25.5 (22.3-36.8) Seconds Sodium 143 (137-145) mmol/L Potassium 3.8 (3.4-5.0) mmol/L Chloride 108 H (98-107) mmol/L Carbon Dioxide 20 L (22-30) mmol/L Anion Gap 15 H (4-12) mmol/L BUN 12 (9-20) mg/dL Creatinine 0.89 (0.7-1.3) mg/dL Estim Creat Clear Calc Not Reportable Estimated GFR > 60 (59 - ) Glucose 97 (65-110) mg/dL Lactic Acid 1.2 (0.7-2.0) mmol/L Calcium 9.5 (8.4-10.2) mg/dL Total Bilirubin 0.7 (0.2-1.3) mg/dL AST 30 (17-59) U/L ALT 24 (6-50) U/L Alkaline Phosphatase 90 (38-126) U/L Total Protein 8.0 (6.3-8.2) g/dL Albumin 4.7 (3.5-5.1) g/dL Lipase 230 (23-300) U/L Discharge Plan Discharge Clinical Impression: Abdominal cramping Patient Disposition: Home, Self-Care Condition: Stable Instructions: Antibiotic Form, Clear Liquid Diet (ED), Abdominal Pain (ED) Additional Instructions: Bentyl as directed for abdominal cramping. Follow a clear liquid diet for the next few days, Zofran and Reglan as directed for nausea and gastroparesis. Continue to have close follow-up with Dr. Pang as scheduled. If you have any worsening symptoms and please call or return to the emergency department. Patient Language: Czech Prescriptions: New dicyclomine 10 mg capsule 10 mg PO BID Qty: 14 0RF No Action metoclopramide HCl [Reglan] 5 mg tablet 5 mg PO .hs 30 Days Qty: 30 5RF eszopiclone [Lunesta] 2 mg tablet 2 mg PO QHS Qty: 1 0RF Rx Instructions: Take 20-30 minutes before bedtime on night of sleep study. ondansetron 4 mg tablet,disintegrating 4 mg PO Q6H PRN (Reason: nausea and vomiting) Qty: 10 0RF dicyclomine 20 mg tablet 20 mg PO QID Qty: 14 0RF ferrous sulfate 324 mg (65 mg iron) tablet,delayed release (DR/EC) 324 mg PO DAILY Qty: 30 1RF omeprazole 20 mg capsule,delayed release(DR/EC) See Rx Instructions .ROUTE .COMPLEX Qty: 180 5RF Dose Instruction: TAKE 1 CAPSULE BY MOUTH TWICE DAILY Rx Instructions: TAKE 1 CAPSULE BY MOUTH TWICE DAILY levothyroxine 50 mcg tablet 50 mcg PO DAILY Qty: 90 2RF rosuvastatin 10 mg tablet 10 mg PO DAILY Qty: 90 1RF escitalopram oxalate 20 mg tablet 20 mg PO DAILY Qty: 90 1RF lorazepam 0.5 mg tablet 0.5 mg PO BID PRN (Reason: anxiety) Qty: 60 0RF Follow-up/Referrals: Marivel Moya DO [Primary Care Provider] - Kamron Garza MD [Physician] -
[2024-10-09 14:12] LABS: Basophils Percent Auto 0.1 % (0.2-1.2); Eosinophils Absolute Auto 0.1 K/mm3 (0-0.3); Eosinophils Percent Auto 0.7 % (0-4.4); Hematocrit 33.1 % (42.0-52.0); Hemoglobin 10.4 g/dL (14.0-18.0); Immature Granulocyte Absolute 0.02 K/mm3 (0.00-0.031); Immature Granulocyte Percent A 0.2 % (0-0.5); Lymphocytes Absolute Auto 1.67 K/mm3 (0.9-3.2); Lymphocytes Percent Auto 20.5 % (18.3-44.2); Mean Corpuscular HGB Conc 31.4 g/dl (32-36); Mean Corpuscular Hemoglobin 24.2 pg (26-34); Mean Platelet Volume 9.7 fl (7.4-10.4); Monocytes Absolute Auto 0.5 K/mm3 (0.1-0.6); Monocytes Percent Auto 6.3 % (2.6-8.5); Neutrophils Absolute Auto 5.9 K/mm3 (1.3-6.7); Neutrophils Percent Auto 72.2 % (45.5-73.1); Platelet Count Result 396 k/mm3 (150-375); Red Cell Distribution Width 15.7 % (11.5-14.5); White Blood Count 8.1 K/mm3 (4.5-10.0)
[2024-10-09 14:22] LABS: Lactic Acid Reflex 1.2 mmol/L (0.7-2.0)
[2024-10-09 14:23] LABS: Alanine Aminotransferase 24 U/L (6-50); Albumin Level 4.7 g/dL (3.5-5.1); Alkaline Phosphatase 90 U/L (38-126); Anion Gap 15 mmol/L (4-12); Aspartate Amino Transferase 30 U/L (17-59); Bilirubin,Total 0.7 mg/dL (0.2-1.3); Blood Urea Nitrogen 12 mg/dL (9-20); Calcium 9.5 mg/dL (8.4-10.2); Carbon Dioxide 20 mmol/L (22-30); Chloride 108 mmol/L (98-107); Estimated Glomerular Filt Rate > 60; Glucose 97 mg/dL (65-110); Lipase 230 U/L (23-300); Potassium 3.8 mmol/L (3.4-5.0); Sodium 143 mmol/L (137-145)
[2024-10-09] MEDS: SODIUM CHLORIDE 0.9% IV 1,000 ML 999 ML IV CONT (14:23)
[2024-10-09] MEDS: DICYCLOMINE HCL INJ 20 MG/2 ML VIAL IM (14:23)
[2024-10-09] MEDS: METOCLOPRAMIDE HCL INJ 10 MG/2 ML VIAL IV PUSH (14:42)
[2024-10-09 14:58] LABS: Partial Thromboplastin Time 25.5 Seconds (22.3-36.8)
[2024-10-09 15:20] LABS: Prothrombin Time 13.8 Seconds (11.1-14.7)
[2024-10-09 16:31] VITALS: BP 141/98; PULSE 102; RESP 18; O2SAT 99
== END 2024-10-09 16:32 | disposition home or self-care (01) ==
PROVIDERS: Emergency Provider Emergency Medicine; PCP Family Medicine
DX: R10.9 Unspecified abdominal pain (principal); I10 Essential (primary) hypertension; E78.5 Hyperlipidemia, unspecified; E03.9 Hypothyroidism, unspecified; K31.84 Gastroparesis; K21.9 Gastro-esophageal reflux disease without esophagitis; F41.9 Anxiety disorder, unspecified; Z87.891 Personal history of nicotine dependence
CPT/HCPCS: 36415; 80053; 83605; 83690; 85025; 85610; 85730; 96361; 96372; 96374; 99284; J0500; J2765; J7030